=== PATIENT | male | born 1935 | race Two or more races ===

== ENCOUNTER 2018-08-29 10:53 | Inpatient (IN) | payer MEDICARE, OTHER ==
[~2018-08-29] VITALS: Ht 165.1 cm; Wt 64.4 kg
[2018-08-29 11:06] LABS: BASOPHILS % (AUTO) 0.4 % (0.0-2.0); EOSINOPHILS % (AUTO) 1.8 % (0.0-6.0); HEMATOCRIT 42 % (39-51); HEMOGLOBIN 14.8 g/dL (13.5-17.5); LYMPHOCYTES # (AUTO) 1.8 /CMM (0.8-4.8); LYMPHOCYTES % (AUTO) 26.2 % (20.0-44.0); MEAN CORPUSCULAR HGB CONC 35 g/dl (31.0-36.0); MEAN CORPUSCULAR VOLUME 88 fL (80-96); MONOCYTES # (AUTO) 0.5 /CMM (0.1-1.30); MONOCYTES % (AUTO) 7.6 % (2.0-12.0); NEUTROPHILS # (AUTO) 4.5 /CMM (1.8-8.9); PLATELET COUNT (AUTO) 198 /CMM (150-450)
--- NOTE | 2018-08-29 11:16 | NUR ---
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 On rrom air, breathing evenly and unlabored. Kept comfortable, will continue to monitor accordingly.
[2018-08-29 11:17] LABS: CALCIUM, SERUM 8.6 mg/dL (8.5-10.1); CARBON DIOXIDE 27 mmol/L (21-32); CHLORIDE 102 mmol/L (98-107); CREATININE 1.2 mg/dL (0.6-1.3); GLUCOSE 207 mg/dL (74-106); SODIUM SERUM 136 mmol/L (136-145); UREA NITROGEN, BLOOD 23 mg/dL (7-18)
[2018-08-29 11:23] LABS: ALANINE AMINOTRANSFERASE 20 U/L (12-78); ALBUMIN 2.7 g/dL (3.4-5.0); ALKALINE PHOSPHATASE 61 U/L (46-116); ASPARTATE AMINOTRANSFERASE 20 U/L (15-37); BILIRUBIN,DIRECT 0.1 mg/dL (0.0-0.2); BILIRUBIN,TOTAL 0.4 mg/dL (0.2-1.0); TOTAL PROTEIN, SERUM 6.7 g/dL (6.4-8.2)
--- NOTE | 2018-08-29 11:23 | NUR ---
XRAY AT BEDSIDE
--- NOTE | 2018-08-29 12:16 | NUR ---
LIBERTY ANDINO, MARY BETH HINSON FIELD ADMINISTRATIVE ASSISTANT DIET THERAPIST
[2018-08-29] MEDS ORDERED: ASPIRIN 325 MG TABLET PO ONE (12:30)
[2018-08-29] MEDS ORDERED: ASPI-605 PO (12:33)
[2018-08-29] MEDS ORDERED: METF-440 PO (12:33)
[2018-08-29] MEDS ORDERED: ROSU20TA2 PO (12:33)
[2018-08-29] MEDS ORDERED: SITA100T PO (12:33)
[2018-08-29] MEDS ORDERED: BENA40TA8 PO (12:33)
[2018-08-29] MEDS ORDERED: ISOS60TA4 PO (12:33)
[2018-08-29] MEDS ORDERED: ASPIRIN 325 MG TABLET ONE (12:37)
--- NOTE | 2018-08-29 12:50 | NUR ---
TELE 111-2
[2018-08-29 13:10] LABS: APPEARANCE,URINE Clear (CLEAR); BILIRUBIN,URINE Negative (NEGATIVE); BLOOD, URINE Small Ery/uL (NEGATIVE); KETONES,URINE Negative (NEGATIVE); LEUKOCYTE ESTERASE ,URINE Negative (NEGATIVE); NITRITE, URINE Negative (NEGATIVE); PROTEIN,URINE >=300 mg/dl (NEGATIVE); UGLUCOSE 250 MG/DL mg/dL (NEGATIVE)
[2018-08-29 13:12] LABS: COLOR,URINE Dark Yellow (YELLOW)
[2018-08-29 13:18] LABS: BACTERIA,URINE Few /HPF (None Seen); MUCUS,URINE Rare /LPF (None Seen); SQUAMOUS EPITHELIAL CELL,UR Moderate /HPF (None Seen)
--- NOTE | 2018-08-29 13:34 | NUR ---
TELE1/RN REPORT FROM ER REPORT GIVEN BY ER NURSE OSITO FOR PT TO BE ADMITTED TO [facility]LE [facility] UNDER THE CARE OF CESAR HINSON. AWAITING FOR PT'S ARRIVAL.
--- NOTE | 2018-08-29 13:43 | NUR ---
TELE1/BLUNGER TO TELE1 - ROOM 101 PT ARRIVED VIA [facility] ACCOMPANIED BY ER NURSE OSITO. PT AMBULATED TO [facility] TO HOSPITAL WITH A STEADY GAIT WITH MINIMUM ASSISTANCE. PT A/O X 3 SWAZI SPEAKING, DENIES ANY SYMPTOMS, OBVIOUS SIGNS OF STROKE, FACIAL FEATURES SYMMETRICAL, NO DRIFTING IN ARMS AND LEGS. ON TELE MONITORING SINUS RHYTHM WITH A FIRST DEGREE AV BLOCK, HR 65. IV SITE FLUSHED, PATENT WITH NO S/S OF INFECTION. PT AND FAMILY MEMBERS ORIENTED TO THEIR SURROUNDINGS. PT IS COMFORTABLE, AWAITING FOR ADMITTING ORDERS. ADMITTING PROTOCOLS TO BE RENDERED. CL WITHIN REACHED AND SAFETY MAINTAINED. ON GOING MONITORING.
--- NOTE | 2018-08-29 13:59 | NUR ---
wheeled patient via gurney accompanied by EMT and rn in no apparent distress noted. Pilar RN at bedside and assume care.
[2018-08-29 14:00] VITALS: BP 170/79
[2018-08-29] MEDS ORDERED: ACETAMINOPHEN 325 MG TABLET PO PRN (14:00)
[2018-08-29] MEDS ORDERED: DEXTROSE 50%-WATER 50 ML DISP.SYRIN IV PRN (14:00)
[2018-08-29] MEDS ORDERED: MAG HYDROX/AL HYDROX/SIMETH 30 ML UDC PO PRN (14:00)
[2018-08-29] MEDS ORDERED: hydrALAZINE HCL IV 20 MG VIAL IV PRN (14:00)
[2018-08-29 16:00] VITALS: BP 155/72
[2018-08-29] MEDS: ENOXAPARIN SODIUM 40 MG/0.4 ML DISP.SYRIN SQ SCH (16:14)
[2018-08-29] MEDS: IV NS 0.9% 1,000 ML IV PRN (16:19)
[2018-08-29] MEDS ORDERED: BLOOD SUGAR DIAGNOSTIC 1 EACH STRIP IN SCH ×2 (17:30)
--- NOTE | 2018-08-29 17:30 | NUR ---
TELE1/RN FOUND ON FLOOR PT FOUND ON FLOOR WITH IV SITE PULLED OUT. PER PT HIS NOT HURT, ACUTE SYMPTOMS IF INJURY NOTED. PRIMARY MD NOTIFIED, NO NEW ORDERS RECEIVED. Addendum: 08/29/18 at 2054 by BEAR BRANDT RN ADDENDUM: PT'S DAUGHTER WAS NOTIFIED OF THE EVENT VIA PHONE CALL.
[2018-08-29] MEDS: BLOOD SUGAR DIAGNOSTIC 1 EACH STRIP IN SCH (18:07)
[2018-08-29 19:29] LABS: THYROID STIMULATING HORMONE 1.747 uIU/mL (0.358-3.74)
--- NOTE | 2018-08-29 19:30 | NUR ---
TELE1/RN AM SHIFT END NOTES NO ACUTE CHANGE OF CONDITION NOTED SINCE PT WAS ADMITTED LATE THIS AFTERNOON, NO NOTICEABLE INJURY SEEN OR FELT PER PT WHEN PT FOUND ON THE FLOOR. PT ENDORSED TO PM NURSE TO CONTINUE CARE. CL WITHIN REACHED AND SAFETY MAINTAINED.
[2018-08-29 20:00] VITALS: BP 151/73
--- NOTE | 2018-08-29 20:00 | NUR ---
RN NOTES PM SHIFT PATIENT IS ALERT AND ORIENTED X3, FORGETFUL, STABLE ON ROOM AIR, NO COMPLAIN OF PAIN, S/P FALL TODAY, FOUND ON THE FLOOR IN ROOM 101. RE INSERTED IV LINE TO LEFT AC, ON NS AT 75 CC/HR, GENERALIZED WEAKNESS, NO SWALLOWING DIFFICULTY, FAMILY AT THE BEDSIDE, WILL CONTINUE TO MONITOR
[2018-08-30] VITALS: BP 147/63
[2018-08-30] MEDS: BLOOD SUGAR DIAGNOSTIC 1 EACH STRIP IN SCH ×4 (00:04→17:41)
[2018-08-30] MEDS: INSULIN REGULAR, HUMAN 100 UNIT/ML 3 ML VIAL SQ PRN ×4 (00:06→17:42)
[2018-08-30 04:09] VITALS: BP 157/75
--- NOTE | 2018-08-30 06:37 | NUR ---
RN NOTES PM SHIFT PATIENT IS ALERT AND ORIENTED X3, NO SOB, NO COMPLAIN OF PAIN, BG AT 0600 71 MG/DL, GIVEN ORANGE JUICE 8OZ, AFTER MINUTES RECHECK BG TO 105, NO S/S OF HYPOGLYCEMIA. NO ADVERSE CHANGE OF CONDITION DURING SHIFT.
[2018-08-30 06:43] LABS: BASOPHILS % (AUTO) 0.5 % (0.0-2.0); EOSINOPHILS % (AUTO) 2.9 % (0.0-6.0); HEMATOCRIT 35 % (39-51); HEMOGLOBIN 12.2 g/dL (13.5-17.5); LYMPHOCYTES # (AUTO) 1.7 /CMM (0.8-4.8); LYMPHOCYTES % (AUTO) 29.9 % (20.0-44.0); MEAN CORPUSCULAR HGB CONC 35 g/dl (31.0-36.0); MEAN CORPUSCULAR VOLUME 88 fL (80-96); MONOCYTES # (AUTO) 0.5 /CMM (0.1-1.30); MONOCYTES % (AUTO) 8.9 % (2.0-12.0); NEUTROPHILS # (AUTO) 3.4 /CMM (1.8-8.9); NEUTROPHILS % (AUTO) 57.8 % (43.0-81.0); PLATELET COUNT (AUTO) 171 /CMM (150-450); RED BLOOD CELL COUNT(AUTO) 4.01 MIL/uL (4.5-6.0); WHITE BLOOD COUNT (AUTO) 5.8 K/uL (4.3-11.0)
[2018-08-30 06:58] LABS: CARBON DIOXIDE 26 mmol/L (21-32); CHLORIDE 104 mmol/L (98-107); CREATININE 1.2 mg/dL (0.6-1.3); GLUCOSE 67 mg/dL (74-106); POTASSIUM 3.5 mmol/L (3.5-5.1); SODIUM SERUM 138 mmol/L (136-145); UREA NITROGEN, BLOOD 23 mg/dL (7-18)
--- NOTE | 2018-08-30 07:30 | NUR ---
RN NOTES RECEIVED PATIENT IN BED, A/A/O X 2-3, ABLE TO MAKE NEEDS KNOWN BUT EXPRESSES SELF MORE IN LITHUANIAN, NO COMPLAINTS OF PAIN. NO OBVIOUS SIGNS OF STROKE NOTED AT THIS TIME. FACIAL FEATURES SYMMETRICA: ABLE TO RAISE BROWS EVENLY, WITH EVEN SMILE, WITH EQUAL MUSCLE STRENGTH ON ALL EXTREMITIES. NO DRIFTING IN ARMS AND LEGS. ON TELE MONITORING: SINUS RHYTHM WITH A FIRST DEGREE AV BLOCK, HR ON THE 60'S. IV ACCESS SITE ON THE LAC G 22, IN PLACE AND INTACT, PATENT UPON FLUSHING WITH NO S/S OF INFILTRATION OR INFECTION. WITH ONGOING IVF OF NS AT 75CC/HR. AT BEDSIDE, ENCOURAGE THEM TO CALL FOR HELP AND ASSISTANCE. SAFETY MEASURES OBSERVED AND MAINTAINED IN PLACE. BED LOW AND LOCKED POSITIONED. SRX2 RAISED. CALL LIGHT PLACED WITHIN REACHED AND SAFETY MAINTAINED. WILL CONTINUE TO MONITOR AND ANTICIPATE NEEDS
[2018-08-30 08:00] VITALS: BP_SYST 151; BP_SYST 172; BP_DIAS 80; BP_DIAS 85
[2018-08-30] MEDS: ISOSORBIDE MONONITRATE (30MG) 30 MG TAB.SR.24H PO SCH (09:03)
[2018-08-30] MEDS: ATORVASTATIN 40 MG TABLET PO SCH (09:03)
[2018-08-30] MEDS: BENAZEPRIL HCL 20 MG TABLET PO SCH (09:03)
[2018-08-30] MEDS: PANTOPRAZOLE 40 MG TABLET.DR PO SCH (09:03)
[2018-08-30] MEDS: ASPIRIN EC 81 MG TABLET.DR PO SCH (09:03)
[2018-08-30 12:00] VITALS: BP_SYST 163; BP_SYST 175; BP_DIAS 78; BP_DIAS 85
[2018-08-30] MEDS: IV NS 0.9% 1,000 ML IV PRN (12:35)
[2018-08-30 16:00] VITALS: BP 106/75
--- NOTE | 2018-08-30 19:49 | NUR ---
RN NOTES ENDORSED PATIENT FOR CONTINUITY CARE. NOT ON ANY FORM OF DISTRESS. NO ACUTE CHANGES WITHIN THE SHIFT. ALL NURSING NEEDS ATTENDED AND MET. SAFETY MEASURES IN PLACE AT ALL TIME. CALL LIGHT PLACED WITHIN REACH
[2018-08-30 20:00] VITALS: BP_SYST 165; BP_DIAS 75; BP_DIAS 76
--- NOTE | 2018-08-30 20:00 | NUR ---
CLAUDY RN NOTES RECEIVED PATIENT IN BED, A/A/O X 2-3, ABLE TO MAKE NEEDS KNOWN IN DANISH, NO COMPLAINTS OF PAIN. NO OBVIOUS SIGNS OF STROKE NOTED AT THIS TIME. FACIAL FEATURES SYMMETRICA: ABLE TO RAISE EYE BROWS EVENLY, WITH EVEN SMILE, WITH EQUAL MUSCLE STRENGTH ON ALL EXTREMITIES. NO DRIFTING IN ARMS AND LEGS. IV ACCESS SITE ON THE LAC G 22 AND RIGHT HAND 22G ARE IN PLACE AND INTACT, PATENT UPON FLUSHING WITH NO S/S OF INFILTRATION OR INFECTION. WITH ONGOING IVF OF NS AT 75CC/HR. AT BEDSIDE, ENCOURAGE THEM TO CALL FOR HELP FOR ASSISTANCE. SAFETY MEASURES OBSERVED AND MAINTAINED IN PLACE. BED LOW AND LOCKED POSITIONED. SRX2 RAISED. CALL LIGHT PLACED WITHIN REACHED AND SAFETY MAINTAINED. WILL CONTINUE TO MONITOR AND ANTICIPATE NEEDS ACCORDINGLY.
--- NOTE | 2018-08-30 21:35 | NUR ---
RN NOTES PATIENT'S B/P 180/86 HR 65 . CALLED MD THIBODEAUX PER MD ORDER PATIENT'S STATUS FROM MS HAS BEEN CHANGED TO CLAUDY AND APRESOLINE IV 20MG WILL BE ADMINISTERED. WILL CONTINUE TO MONITOR PATIENT CLOSELY.
[2018-08-30] MEDS: ENOXAPARIN SODIUM 40 MG/0.4 ML DISP.SYRIN SQ SCH (21:40)
[2018-08-30] MEDS ORDERED: DONEPEZIL 5 MG TABLET PO SCH (22:00)
--- NOTE | 2018-08-30 22:00 | NUR ---
RN NOTES PATIENT B/P HAS BEEN RECHECKED AND B/P IS 137/73 HR 80. WILL CONTINUE TO MONITOR PATIENT.
[2018-08-31] VITALS: BP 144/74
[2018-08-31] MEDS: BLOOD SUGAR DIAGNOSTIC 1 EACH STRIP IN SCH ×3 (00:23→11:59)
[2018-08-31 04:00] VITALS: BP 141/79
[2018-08-31] MEDS: INSULIN REGULAR, HUMAN 100 UNIT/ML 3 ML VIAL SQ PRN ×2 (06:15→12:04)
[2018-08-31 06:50] LABS: BASOPHILS % (AUTO) 0.5 % (0.0-2.0); EOSINOPHILS % (AUTO) 2.4 % (0.0-6.0); HEMATOCRIT 40 % (39-51); LYMPHOCYTES # (AUTO) 1.5 /CMM (0.8-4.8); LYMPHOCYTES % (AUTO) 22.6 % (20.0-44.0); MEAN CORPUSCULAR HGB CONC 35 g/dl (31.0-36.0); MEAN CORPUSCULAR VOLUME 88 fL (80-96); MONOCYTES # (AUTO) 0.5 /CMM (0.1-1.30); NEUTROPHILS # (AUTO) 4.3 /CMM (1.8-8.9); NEUTROPHILS % (AUTO) 66.5 % (43.0-81.0); PLATELET COUNT (AUTO) 176 /CMM (150-450); RED BLOOD CELL COUNT(AUTO) 4.57 MIL/uL (4.5-6.0); WHITE BLOOD COUNT (AUTO) 6.5 K/uL (4.3-11.0)
[2018-08-31 07:15] LABS: CALCIUM, SERUM 8.4 mg/dL (8.5-10.1); CARBON DIOXIDE 24 mmol/L (21-32); CHLORIDE 104 mmol/L (98-107); CREATININE 1.2 mg/dL (0.6-1.3); GLUCOSE 173 mg/dL (74-106); MAGNESIUM 1.9 mg/dL (1.8-2.4); PHOSPHORUS 3.1 mg/dL (2.5-4.9); POTASSIUM 3.7 mmol/L (3.5-5.1); SODIUM SERUM 137 mmol/L (136-145); UREA NITROGEN, BLOOD 17 mg/dL (7-18)
--- NOTE | 2018-08-31 07:32 | NUR ---
PROCESS AREA SUPERVISOR/CLAUDY OPENING NOTES RECEIVED PATIENT AWAKE SITTING AT SIDE OF BED. HUNGARIAN SPEAKING A/O 2-3. SINUS ON MONITOR IN THE LOW 80'S. SKIN INTACT AMBULATORY IN ROOM .IV TO RIGHT HAND #22 GAUGE LAC #22 GAUGE.NO SIGNS OR SYMPTOMS OF RESPIRATORY DISTRESS OR ACUTE PAIN NOTED. WILL MONITOR LABS AND TESTS ACCORDINGLY. SAFETY PRECAUTIONS IN PLACE BED ALARM AND IN LOW POSITION. CALL LIGHT WITHIN REACH WILL CONT TO MONITOR APPROPRIATELY
--- NOTE | 2018-08-31 07:33 | NUR ---
RN NOTES ENDORSED PATIENT CARE REPORT TO AM SHIFT RN FOR CONTINUITY OF CARE. PATIENT IS NOT IN ANY DISTRESS. ALL PATIENT NEEDS ARE ATTENDED AND MET. SAFETY MEASURES IN PLACE AT ALL TIME. CALL LIGHT PLACED WITHIN REACH.
[2018-08-31 08:00] VITALS: BP 150/82
[2018-08-31] MEDS: ASPIRIN EC 81 MG TABLET.DR PO SCH (08:28)
[2018-08-31] MEDS: ATORVASTATIN 40 MG TABLET PO SCH (08:28)
[2018-08-31] MEDS: PANTOPRAZOLE 40 MG TABLET.DR PO SCH (08:28)
[2018-08-31] MEDS: ISOSORBIDE MONONITRATE (30MG) 30 MG TAB.SR.24H PO SCH (08:29)
[2018-08-31] MEDS: BENAZEPRIL HCL 20 MG TABLET PO SCH (08:29)
--- NOTE | 2018-08-31 11:30 | NUR ---
RN CLAUDY/TELE NOTES MONITORING B/P LAST READING 169/42 PATIENT HAS TREMORS TO BOTH ARMS READING MAY REFLECT.
[2018-08-31 12:00] VITALS: BP 168/80
[2018-08-31] MEDS ORDERED: DONE5TAB7 PO (12:35)
--- NOTE | 2018-08-31 12:51 | NUR ---
ORDERS FOR DISCHARGE SPOKE WITH DAUGHTER WILL P/U AT 1400
--- NOTE | 2018-08-31 14:09 | NUR ---
SENIOR DATA ANALYST NOTES PATIENT FAMILY TO P/U PATIENT. APTIENT STABLE NO SIGNS OR SYMPTOMS OF RESPIRATORY DISTRESS OR ACUTE PAIN VS T 97.7 HR 65 RR 18 O2 100% ON ROM AIR BP 164/75. SKIN INTACT NO PHOTOS TAKEN .IV REMOVED FROM R HAND # 22 GAUGE AND LAC #22 GAUGE REMOVED CATH INTACT MINIMAL BLEEDING NOTED. ALL EXIT CARE GIVEN TO DAUGHTER WELL MD ORDERS TO F/U WITH NEUROLOGIST. ESCORTED OF UNIT VIA WHEELCHAIR WITH FAMILY AND CORSETS SALESPERSON.
== END 2018-08-31 14:11 | disposition home or self-care (01) | DRG 640 ==
LOC: ER 10:57 → TELE1 13:05 → MEDSG1 08-30 13:01 → TELE-TD 08-31 00:52
PROVIDERS: ADMIT Nurse Practitioner Acute Care; ATTEND Nurse Practitioner Acute Care
DX: E86.0 Dehydration (principal); G93.41 Metabolic encephalopathy; E44.1 Mild protein-calorie malnutrition; N39.0 Urinary tract infection, site not specified; F03.90 Unspecified dementia, unspecified severity, without behavioral disturbance, psychotic disturbance, mood disturbance, and anxiety; I10 Essential (primary) hypertension; E11.9 Type 2 diabetes mellitus without complications; E78.5 Hyperlipidemia, unspecified; K21.9 Gastro-esophageal reflux disease without esophagitis; M19.90 Unspecified osteoarthritis, unspecified site; Z79.84 Long term (current) use of oral hypoglycemic drugs; E88.09 Other disorders of plasma-protein metabolism, not elsewhere classified; N40.0 Benign prostatic hyperplasia without lower urinary tract symptoms; Z68.23 Body mass index [BMI] 23.0-23.9, adult
CPT/HCPCS: 36415; 70450-TC; 71045-TC; 80048-TC; 80061-TC; 80076-TC; 80305; 81000-TC; 82962-TC; 83735-TC; 83880; 84100-TC; 84443-TC; 84484-TC; 85025-TC; 85652-TC; 85730-TC; 87081-TC; 87086-TC; 92526; 92611-TC; 97116-TC; 97530-TC; 97535-TC; G0378; J0360; J1650; J1815; J3490; J7030; J7070

== ENCOUNTER 2019-03-23 15:17 | Inpatient (IN) | payer MEDICARE, OTHER ==
[~2019-03-23] VITALS: Ht 157.5 cm; Wt 54.4 kg
[~2019-03-23 15:17] MED LIST: ASPI-605 PO; BENA40TA8 PO; DONE5TAB7 PO; ISOS60TA4 PO; METF-440 PO; ROSU20TA2 PO; SITA100T PO
--- NOTE | 2019-03-23 15:54 | NUR ---
BIBPA FOR LOW BP 88/64 PER EMS,F[place]ON AXOX2.NO SOB NO DISTRESS NOTED.WILL CONTINUE TO MONITOR.
--- NOTE | 2019-03-23 16:16 | NUR ---
called rn sup for tele bed
[2019-03-23 16:30] LABS: BASOPHILS % (AUTO) 0.3 % (0.0-2.0); EOSINOPHILS % (AUTO) 0.3 % (0.0-6.0); HEMATOCRIT 43 % (39-51); LYMPHOCYTES # (AUTO) 1.5 /CMM (0.8-4.8); LYMPHOCYTES % (AUTO) 13.1 % (20.0-44.0); MEAN CORPUSCULAR HGB CONC 33 g/dl (31.0-36.0); MEAN CORPUSCULAR VOLUME 89 fL (80-96); MONOCYTES # (AUTO) 0.8 /CMM (0.1-1.30); MONOCYTES % (AUTO) 7.1 % (2.0-12.0); NEUTROPHILS # (AUTO) 9.3 /CMM (1.8-8.9); NEUTROPHILS % (AUTO) 79.2 % (43.0-81.0); PLATELET COUNT (AUTO) 219 /CMM (150-450); WHITE BLOOD COUNT (AUTO) 11.8 K/uL (4.3-11.0)
[2019-03-23] MEDS ORDERED: IV NS 0.9% 500 ML BAG IV ONE (16:30)
[2019-03-23 16:49] LABS: ALANINE AMINOTRANSFERASE 191 U/L (12-78); ALBUMIN 1.9 g/dL (3.4-5.0); ALKALINE PHOSPHATASE 117 U/L (46-116); ASPARTATE AMINOTRANSFERASE 98 U/L (15-37); BILIRUBIN,DIRECT 0.1 mg/dL (0.0-0.2); BILIRUBIN,TOTAL 0.4 mg/dL (0.2-1.0); CALCIUM, SERUM 9.1 mg/dL (8.5-10.1); CARBON DIOXIDE 22 mmol/L (21-32); CHLORIDE 96 mmol/L (98-107); CREATININE 2.4 mg/dL (0.6-1.3); GLUCOSE 251 mg/dL (74-106); POTASSIUM 5.2 mmol/L (3.5-5.1); SODIUM SERUM 127 mmol/L (136-145); TOTAL PROTEIN, SERUM 7.3 g/dL (6.4-8.2)
[2019-03-23] MEDS ORDERED: AMLO10TA4 PO (16:49)
[2019-03-23] MEDS ORDERED: TAMS-12 PO (16:49)
[2019-03-23] MEDS ORDERED: LANS30CA56 PO (16:49)
[2019-03-23] MEDS ORDERED: ROSU40TA PO (16:49)
[2019-03-23] MEDS ORDERED: CLONIDINE PATCH (16:49)
[2019-03-23] MEDS ORDERED: SOTA80TA PO (16:49)
[2019-03-23] MEDS ORDERED: INSU100V7 SQ (16:49)
[2019-03-23] MEDS ORDERED: CLOP75TA15 PO (16:49)
[2019-03-23] MEDS ORDERED: LOSA50TA3 PO (16:49)
[2019-03-23] MEDS ORDERED: ENOX40DI SQ (16:49)
[2019-03-23] MEDS ORDERED: FURO-144 PO (16:49)
[2019-03-23] MEDS ORDERED: INSU100I4 SQ (16:49)
[2019-03-23] MEDS ORDERED: DOCU-141 PO (16:49)
[2019-03-23] MEDS ORDERED: SPIR50TA5 PO (16:49)
[2019-03-23] MEDS ORDERED: HYDR-4076 PO (16:49)
[2019-03-23] MEDS ORDERED: LINA72CA PO (16:49)
[2019-03-23] MEDS ORDERED: ACET-868 PO (16:49)
[2019-03-23 16:54] LABS: UREA NITROGEN, BLOOD 86 mg/dL (7-18)
--- NOTE | 2019-03-23 16:54 | NUR ---
BUN=86
--- NOTE | 2019-03-23 17:12 | NUR ---
epic was paged
[2019-03-23 17:16] LABS: APPEARANCE,URINE Cloudy (CLEAR); BILIRUBIN,URINE Negative (NEGATIVE); BLOOD, URINE Large Ery/uL (NEGATIVE); COLOR,URINE Yellow (YELLOW); KETONES,URINE Negative (NEGATIVE); LEUKOCYTE ESTERASE ,URINE Large (NEGATIVE); NITRITE, URINE Negative (NEGATIVE); PROTEIN,URINE 100 mg/dl (NEGATIVE); UGLUCOSE Negative (NEGATIVE); UROBILINOGEN,URINE 0.2 EU/dL (0.2)
--- NOTE | 2019-03-23 17:18 | NUR ---
BIBPA FOR LOW BP 88/64 PER EMS,F[place]ON AXOX2.NO SOB NO DISTRESS NOTED.WILL CONTINUE TO MONITOR.
--- NOTE | 2019-03-23 17:18 | NUR ---
still waiting for bed assignment
[2019-03-23 17:28] LABS: BACTERIA,URINE Many /HPF (None Seen); SQUAMOUS EPITHELIAL CELL,UR Few /HPF (None Seen)
[2019-03-23] MEDS ORDERED: PIPERACILLIN /TAZOBACTAM 3.375 G in IV D5W 50 ML IV ONE (17:30)
[2019-03-23] MEDS ORDERED: VANCOMYCIN HCL 1 GM in IV D5W 260 ML IV ONE (17:30)
--- NOTE | 2019-03-23 17:37 | NUR ---
paged viky again
--- NOTE | 2019-03-23 18:17 | NUR ---
REPORTGIVEN TO ANTONIO MONTEMAYOR
[2019-03-23] MEDS ORDERED: Z GUARD REMEDY 2 OZ OINT TP PRN (19:00)
[2019-03-23] MEDS ORDERED: ACETAMINOPHEN 325 MG TABLET PO PRN (19:00)
[2019-03-23] MEDS ORDERED: ENOXAPARIN SODIUM 30 MG/0.3 ML DISP.SYRIN SQ SCH (19:00)
[2019-03-23] MEDS ORDERED: ONDANSETRON HCL/PF 4 MG/2 ML VIAL IVP PRN (19:00)
--- NOTE | 2019-03-23 19:00 | NUR ---
traveling storekeepersewer digger notes Received Pt from ER nurse. Pt arrived at the unit with a gurtrino and ACLS protocol. Pt is 83 M YO with a diagnose of sepsis with UTI. Pt is alert and orientedX1. Pt speaks Nepali and able to make needs known. Respiration is normal. No SOB. No nausea or vomiting. Pt denies any pain or discomfort at this time. Tele monitor showed sinus salty 57. IV sites at R hand# 20 is clean, intact, patent. Pt came with vanco abx still infusing from ER. Argyle Pt to the room and the use of call light. Admission orders is received. Skin is intact. Pt's belonging was checked by TRACEY Duong. Safety precautions is maintained. Bed at low position, brakes locked, side rails upX3 and call light is within reach. Will continue to monitor.
--- NOTE | 2019-03-23 19:05 | NUR ---
SCHOOL SOCIAL WORKER NOTES PATIENT RECEIVED AWAKE IN BED, NO RESPIRATORY DISTRESS, NO C/O PAIN AT THIS TIME. PATIENT'S NEEDS ATTENDED, BED ON LOWEST LOCKED POSITION, CALL LIGHT WITHIN REACH. ENDORSED TO ANTONIO LOBO FOR ADMISSION.
[2019-03-23 19:10] VITALS: BP 117/58
--- NOTE | 2019-03-23 19:10 | NUR ---
talk show host notes Echo at the bedside.
[2019-03-23] MEDS ORDERED: DEXTROSE 50%-WATER 50 ML DISP.SYRIN IV PRN (19:30)
[2019-03-23] MEDS: IV NS 0.9% 1,000 ML IV PRN (19:55)
[2019-03-23 20:00] VITALS: BP_SYST 117; BP_SYST 120; BP_DIAS 51; BP_DIAS 54
--- NOTE | 2019-03-23 20:00 | NUR ---
vending mechanic notes Contacted Dr. Lester regarding lovenox 30 mg that is scheduled at 1900 and 2100. MD ordered to give at 2100 not 1900. Called pharmacy and spoke with Judith regarding lovenox. Will continue to monitor.
[2019-03-23] MEDS ORDERED: FEE PK DOSING 1 MIN EA MC ONE (20:09)
[2019-03-23] MEDS: hydrALAZINE HCL 25 MG TABLET PO SCH (20:30)
[2019-03-23] MEDS: ENOXAPARIN SODIUM 30 MG/0.3 ML DISP.SYRIN SQ SCH (20:31)
[2019-03-23] MEDS: TAMSULOSIN 0.4 MG CAP.SR.24H PO SCH (21:07)
[2019-03-23] MEDS ORDERED: ATORVASTATIN 40 MG TABLET PO SCH (22:00)
[2019-03-23] MEDS: PIPERACILLIN /TAZOBACTAM 2.25 G in IV D5W 50 ML IV SCH (23:34)
[2019-03-23] MEDS: BLOOD SUGAR DIAGNOSTIC 1 EACH STRIP IN SCH (23:45)
[2019-03-23] MEDS: INSULIN REGULAR, HUMAN 100 UNIT/ML 3 ML VIAL SQ PRN (23:52)
[2019-03-24] VITALS: BP 104/48
--- NOTE | 2019-03-24 | NUR ---
soap chipper notes Pt's BP 104/48. HR 53. Tele monitor showed sinus salty at 53. IV fluid is infusing NS @ 75 ml/hr. Asymptomatic. No S/S of distress noted. Charge nurse is aware and informed. Will continue to monitor.
--- NOTE | 2019-03-24 03:00 | NUR ---
marketing communications assistant notes Called and spoke with Leighton can labeler about Pt's troponin that due midnight. Leighton stated Q 6hrs. Leighton will come and draw the blood.
--- NOTE | 2019-03-24 03:07 | NUR ---
silk brusher notes senior mechanical technician Leighton at the bedside.
[2019-03-24 03:18] LABS: BASOPHILS # (AUTO) 0.1 /CMM (0.0-0.2); BASOPHILS % (AUTO) 0.9 % (0.0-2.0); EOSINOPHILS % (AUTO) 0.7 % (0.0-6.0); HEMATOCRIT 39 % (39-51); HEMOGLOBIN 13.3 g/dL (13.5-17.5); LYMPHOCYTES # (AUTO) 1.2 /CMM (0.8-4.8); LYMPHOCYTES % (AUTO) 15.3 % (20.0-44.0); MEAN CORPUSCULAR HGB CONC 34 g/dl (31.0-36.0); MEAN CORPUSCULAR VOLUME 87 fL (80-96); MONOCYTES # (AUTO) 0.8 /CMM (0.1-1.30); MONOCYTES % (AUTO) 10.4 % (2.0-12.0); NEUTROPHILS # (AUTO) 5.9 /CMM (1.8-8.9); NEUTROPHILS % (AUTO) 72.7 % (43.0-81.0); PLATELET COUNT (AUTO) 221 /CMM (150-450); RED BLOOD CELL COUNT(AUTO) 4.49 MIL/uL (4.5-6.0); WHITE BLOOD COUNT (AUTO) 8.2 K/uL (4.3-11.0)
[2019-03-24 03:31] LABS: ALANINE AMINOTRANSFERASE 155 U/L (12-78); ALBUMIN 1.9 g/dL (3.4-5.0); ALKALINE PHOSPHATASE 103 U/L (46-116); ASPARTATE AMINOTRANSFERASE 89 U/L (15-37); BILIRUBIN,TOTAL 0.4 mg/dL (0.2-1.0); CALCIUM, SERUM 8.7 mg/dL (8.5-10.1); CARBON DIOXIDE 25 mmol/L (21-32); CHLORIDE 99 mmol/L (98-107); GLUCOSE 131 mg/dL (74-106); MAGNESIUM 2.4 mg/dL (1.8-2.4); PHOSPHORUS 4.4 mg/dL (2.5-4.9); POTASSIUM 4.2 mmol/L (3.5-5.1); SODIUM SERUM 132 mmol/L (136-145); TOTAL PROTEIN, SERUM 6.7 g/dL (6.4-8.2); UREA NITROGEN, BLOOD 80 mg/dL (7-18)
[2019-03-24 03:45] LABS: IRON, SERUM 53 ug/dl (50-175); TOTAL IRON BINDING CAPACITY 113 ug/dl (250-450)
[2019-03-24 03:55] LABS: CHOLESTEROL 82 mg/dL (<200); HDL CHOLESTEROL 30 mg/dL (40-60); LDL 40 mg/dL (0-99); THYROID STIMULATING HORMONE 0.838 uIU/mL (0.358-3.74); TRIGLYCERIDES 127 mg/dL (30-150)
[2019-03-24 04:00] VITALS: BP 101/52
[2019-03-24] MEDS: hydrALAZINE HCL 25 MG TABLET PO SCH ×3 (04:01→21:00)
[2019-03-24 04:40] VITALS: BP 101/52
[2019-03-24] MEDS: PIPERACILLIN /TAZOBACTAM 2.25 G in IV D5W 50 ML IV SCH ×4 (05:00→23:59)
[2019-03-24] MEDS: BLOOD SUGAR DIAGNOSTIC 1 EACH STRIP IN SCH ×3 (06:18→19:05)
[2019-03-24] MEDS: INSULIN REGULAR, HUMAN 100 UNIT/ML 3 ML VIAL SQ PRN ×2 (06:20→19:02)
--- NOTE | 2019-03-24 06:53 | NUR ---
tape edge machine operator closing notes Pt is resting in bed comfortably. Respiration is normal. No SOB. No S/S of distress noted. IV sites at R hand# 20 is clean, intact, patent and infusing well NS @ 75 ml/hr. VS is stable. Afebrile. Routine meds were given as ordered. Tele monitor showed sinus salty at 52. Kept Pt clean, dry, warm and comfortable. Skin care provided. Turned and repositioned Q 2 hr. Safety precautions is maintained. Bed at low position, brakes locked, side rails upX3 and call light is within reach. Will endorse to morning nurse to KITTY.
--- NOTE | 2019-03-24 07:00 | NUR ---
COMPUTER LAB ASSISTANT NOTES OPENING PATIENT IS A/O 1 PATIENT IS AMHARIC SPEAKING. PATIENT IS RESTING COMFORABLE IN BED. PATIENT IS AWAKE. PATIENT IS IN ROOM AIR SATURATING WELL. PATIENT SHOWS NO SIGNS OF SOB. NO PAIN. EVEN AND UNLABORED . PATIENT IS ON TELE MONITOR PATIENT IS IN SINUS BRIAN IN THE 50'S . PATIENT IS LUPPPER CONTRACTIONS. L LOWER SEVERE WEAKNESS. AND R UPPER AND LOWER WEAKNESS. PATIENT HAS R HAND 20# PATENT AND INTACT. WITH NS 75ML/ HOUR BED LOCKED AND LOWEST POSITION CALL LIGHT WITH IN REACH. ALL SAFETY MEASURE IMPLEMENTED PER HOSPITAL POLICY
[2019-03-24] MEDS: INSULIN ASPART/LISPRO 100 UNIT/ML CARTRIDGE SQ SCH ×3 (07:30→17:30)
[2019-03-24 08:00] VITALS: BP 120/70
--- NOTE | 2019-03-24 08:12 | NUR ---
LEAD PRINTER NOTES BS 90 PATIENT INSULIN HUMALOG HELD . PATIENT DID NOT EAT MUCH FOOD. PATIENT WAS STARTING TO POCKET FOOD. POCKETED FOOD TAKEN OUT. FOR ASPIRATION RISK
[2019-03-24] MEDS: LOSARTAN POTASSIUM 50 MG TABLET PO SCH ×2 (08:18→16:01)
[2019-03-24] MEDS: AMLODIPINE BESYLATE 10 MG TABLET PO SCH (08:18)
--- NOTE | 2019-03-24 08:18 | NUR ---
FILTER PULP WASHER NOTES MEDICATION HELD BP 106/57 HR 53 Addendum: 03/24/19 at 0827 by MICHAEL ALONSO RN FILTER PULP WASHER NOTES BP MEDICATIONS HELD . PATIENT BP 106/57 - HR 53
[2019-03-24] MEDS: ASPIRIN EC 81 MG TABLET.DR PO SCH (08:20)
[2019-03-24] MEDS: CLOPIDOGREL BISULFATE 75 MG TABLET PO SCH (08:20)
[2019-03-24] MEDS: SOTALOL HCL 80 MG TABLET PO SCH (08:24)
--- NOTE | 2019-03-24 11:21 | NUR ---
RN MS NOTES - BS BS -110 NO COVERAGE FOR INSULIN
[2019-03-24 16:00] VITALS: BP 127/54
--- NOTE | 2019-03-24 16:02 | NUR ---
RN MS PATIENT BP 127/57 HOLD BP HR 53 MEDICATION
[2019-03-24] MEDS: VANCOMYCIN 0.75 GM in IV D5W 250 ML IV SCH (17:53)
--- NOTE | 2019-03-24 19:10 | NUR ---
MS RN NOTES RECEIVED PT IN BED AWAKE WITH FAMILY AT BEDSIDE. PT A/O X 1 UPPER SORBIAN SPEAKING. RESPIRATIONS EVEN AND UNLABORED WITH NO S/S OF ACUTE DISTRESS OR SOB NOTED. NO COMPLAINTS OF PAIN AT THIS TIME. PT WITH RHAND #20G PATENT AND INTACT INFUSING NS @75CC/HR. BED IN LOWEST LOCKED POSITION WITH SIDE RAILS UP X2. CALL LIGHT WITHIN REACH. WILL CONTINUE TO MONITOR.
--- NOTE | 2019-03-24 19:19 | NUR ---
RN MS NOTES PATIENT A/O X 1 . PATIENT IS ICELANDIC SPEAKING . PATIENT HAS FAMILY AT BEDSIDE. PATIENT IS IN ROOM AIR AND SATURATING WELL . PATIENT SHOWS NO SIGNS OF SOB, EVEN AND UNLABORED BREATHING . NO SIGNS OF ACUTE DISTRESS NO PAIN .ALL NEEDS MET . BED LOCKED AND LOWEST POSITION CALL LIGHT WITH IN REACH. ALL SAFETY MEASURE IMPLEMENTED PER HOSPITAL POLICY
[2019-03-24 20:00] VITALS: BP 144/68
[2019-03-24] MEDS: TAMSULOSIN 0.4 MG CAP.SR.24H PO SCH (21:47)
[2019-03-24] MEDS: ENOXAPARIN SODIUM 30 MG/0.3 ML DISP.SYRIN SQ SCH (21:51)
[2019-03-25] MEDS: BLOOD SUGAR DIAGNOSTIC 1 EACH STRIP IN SCH ×4 (00:37→18:09)
[2019-03-25] MEDS: IV D5/ 0.9% NACL 1,000 ML IV PRN ×2 (01:06→18:16)
[2019-03-25] MEDS: hydrALAZINE HCL 25 MG TABLET PO SCH ×3 (04:47→21:48)
[2019-03-25] MEDS: PIPERACILLIN /TAZOBACTAM 2.25 G in IV D5W 50 ML IV SCH (05:53)
--- NOTE | 2019-03-25 06:50 | NUR ---
MS RN NOTES PT IN BED ASLEEP BUT EASILY AWOKEN VERBALLY OR BY TOUCH. PT A/O X 1 TRISTANIAN SPEAKING. RESPIRATIONS EVEN AND UNLABORED WITH NO S/S OF ACUTE DISTRESS OR SOB NOTED THROUGHOUT SHIFT. NO COMPLAINTS OF PAIN AT THIS TIME. PT WITH RHAND #20G PATENT AND INTACT INFUSING D5NS @75CC/HR. BED IN LOWEST LOCKED POSITION WITH SIDE RAILS UP X2. CALL LIGHT WITHIN REACH. WILL ENDORSE TO ONCOMING NURSE FOR KITTY.
[2019-03-25 07:18] LABS: BASOPHILS % (AUTO) 0.3 % (0.0-2.0); CREATINE KINASE, TOTAL 1066 U/L (39-308); EOSINOPHILS % (AUTO) 0.9 % (0.0-6.0); HEMATOCRIT 41 % (39-51); HEMOGLOBIN 13.8 g/dL (13.5-17.5); LYMPHOCYTES # (AUTO) 1.3 /CMM (0.8-4.8); LYMPHOCYTES % (AUTO) 20.1 % (20.0-44.0); MEAN CORPUSCULAR HGB CONC 34 g/dl (31.0-36.0); MEAN CORPUSCULAR VOLUME 88 fL (80-96); MONOCYTES # (AUTO) 0.8 /CMM (0.1-1.30); MONOCYTES % (AUTO) 12.5 % (2.0-12.0); NEUTROPHILS # (AUTO) 4.4 /CMM (1.8-8.9); NEUTROPHILS % (AUTO) 66.2 % (43.0-81.0); PLATELET COUNT (AUTO) 201 /CMM (150-450); RED BLOOD CELL COUNT(AUTO) 4.63 MIL/uL (4.5-6.0); WHITE BLOOD COUNT (AUTO) 6.6 K/uL (4.3-11.0)
[2019-03-25 07:23] LABS: ALANINE AMINOTRANSFERASE 151 U/L (12-78); ALBUMIN 1.7 g/dL (3.4-5.0); ALKALINE PHOSPHATASE 97 U/L (46-116); ASPARTATE AMINOTRANSFERASE 91 U/L (15-37); BILIRUBIN,TOTAL 0.4 mg/dL (0.2-1.0); CALCIUM, SERUM 8.6 mg/dL (8.5-10.1); CARBON DIOXIDE 23 mmol/L (21-32); CHLORIDE 105 mmol/L (98-107); CREATININE 1.4 mg/dL (0.6-1.3); GLUCOSE 93 mg/dL (74-106); MAGNESIUM 2.2 mg/dL (1.8-2.4); PHOSPHORUS 3.3 mg/dL (2.5-4.9); SODIUM SERUM 137 mmol/L (136-145); TOTAL PROTEIN, SERUM 6.5 g/dL (6.4-8.2); UREA NITROGEN, BLOOD 51 mg/dL (7-18)
[2019-03-25] MEDS: INSULIN ASPART/LISPRO 100 UNIT/ML CARTRIDGE SQ SCH ×3 (07:30→17:30)
--- NOTE | 2019-03-25 07:30 | NUR ---
npo in am,awaiting arrival of epic .
[2019-03-25 08:00] VITALS: BP 133/64
[2019-03-25] MEDS: CLOPIDOGREL BISULFATE 75 MG TABLET PO SCH (09:56)
[2019-03-25] MEDS: ASPIRIN EC 81 MG TABLET.DR PO SCH (09:56)
[2019-03-25] MEDS: SOTALOL HCL 80 MG TABLET PO SCH (10:50)
--- NOTE | 2019-03-25 10:52 | NUR ---
INDERJIT LU OK'D TO GIVE PT. BETAPACE MED.HEART RATE 55-56.
[2019-03-25] MEDS: AMLODIPINE BESYLATE 10 MG TABLET PO SCH (10:54)
[2019-03-25] MEDS: LOSARTAN POTASSIUM 50 MG TABLET PO SCH ×2 (10:54→18:31)
--- NOTE | 2019-03-25 11:30 | NUR ---
dr. [email or web address].[email or web address] choral director in orders given.pt non-croatian speaking.
[2019-03-25] MEDS: CEFTRIAXONE 1 G in IV D5W 50 ML IV SCH (13:16)
[2019-03-25 16:00] VITALS: BP 150/71
--- NOTE | 2019-03-25 16:05 | NUR ---
NM: HIDA SCAN WAS COMPLETED. TECH;RB
[2019-03-25] MEDS: VANCOMYCIN 0.75 GM in IV D5W 250 ML IV SCH (18:23)
--- NOTE | 2019-03-25 18:50 | NUR ---
had hida scan,ate very little dinner of soft diet.family at bedside.
--- NOTE | 2019-03-25 19:31 | NUR ---
MS RN RECEIVE PT IN BED FAMILY AT BEDSIDE A/O X 1 STABLE AND NOT IN DISTRESS, SAFETY MEASURES IN PLACE. WILL CONTINUE TO MONITOR.
[2019-03-25 20:00] VITALS: BP 143/65
[2019-03-25] MEDS: TAMSULOSIN 0.4 MG CAP.SR.24H PO SCH (21:48)
[2019-03-25] MEDS: ENOXAPARIN SODIUM 30 MG/0.3 ML DISP.SYRIN SQ SCH (21:49)
[2019-03-26] MEDS: BLOOD SUGAR DIAGNOSTIC 1 EACH STRIP IN SCH ×4 (00:01→17:52)
[2019-03-26] MEDS: INSULIN REGULAR, HUMAN 100 UNIT/ML 3 ML VIAL SQ PRN ×2 (00:02→06:01)
[2019-03-26] MEDS: hydrALAZINE HCL 25 MG TABLET PO SCH ×3 (05:14→20:43)
--- NOTE | 2019-03-26 06:15 | NUR ---
MS RN ASLEEP AND EASILY AWAKEN. NOT IN DISTRESS,. NO SIGNIFICANT CHANGES, NO SOB, AM CARE RENDERED, NEEDS ATTENDED AND ANTICIPATED. KEPT CLEAN, DRY AND COMFORTABLE AT ALL TIMES. GOOD SKIN CARE PROVIDED. REPOSITION EVERY [address] ME[address] PL[address]. WILL ENDORSE NEXT SHIFT POC.
[2019-03-26 07:27] LABS: CALCIUM, SERUM 8.4 mg/dL (8.5-10.1); CARBON DIOXIDE 23 mmol/L (21-32); CHLORIDE 109 mmol/L (98-107); CREATININE 1.1 mg/dL (0.6-1.3); GLUCOSE 85 mg/dL (74-106); POTASSIUM 3.7 mmol/L (3.5-5.1); SODIUM SERUM 140 mmol/L (136-145); UREA NITROGEN, BLOOD 31 mg/dL (7-18)
[2019-03-26] MEDS: INSULIN ASPART/LISPRO 100 UNIT/ML CARTRIDGE SQ SCH ×3 (07:30→18:13)
[2019-03-26 08:00] VITALS: BP 128/56
--- NOTE | 2019-03-26 08:00 | NUR ---
RN NOTES RECEIVED PATIENT IN THE BED A/O X2/3 KOREAN SPEAKER MALE. PATIENT HAS NO ACUTE RESPIRATORY DISTRESS, V/S TAKEN STABLE, ADMINISTERED SCHEDULED MEDICATION. PATIENT HAS A LEFT SIDED WEAKNESS, BED BOUND WITH HELP OF TURN AND REPOSTION Q 2 HR. BS-104 MG/DL NO COVERAGE GIVEN. PATIENT TOLERATED BREAKFAST 25 %. PATIENT USING URINAL, INFUSING NS AT RIGHT HAND INTACT 75 ML/HR. CALL LIGHT WITHIN TO REACH. PATIENT REFUSED PAIN AT THIS TIME. SAFETY PRECAUTION MAINTAINED ALL THE TIME.
[2019-03-26] MEDS: ASPIRIN EC 81 MG TABLET.DR PO SCH (09:01)
[2019-03-26] MEDS: AMLODIPINE BESYLATE 10 MG TABLET PO SCH (09:02)
[2019-03-26] MEDS: CLOPIDOGREL BISULFATE 75 MG TABLET PO SCH (09:02)
[2019-03-26 09:42] LABS: ALBUMIN 1.7 g/dL (3.4-5.0); BILIRUBIN,DIRECT 0.1 mg/dL (0.0-0.2); BILIRUBIN,TOTAL 0.3 mg/dL (0.2-1.0); TOTAL PROTEIN, SERUM 6.6 g/dL (6.4-8.2)
[2019-03-26] MEDS: LOSARTAN POTASSIUM 50 MG TABLET PO SCH ×2 (10:52→17:52)
[2019-03-26] MEDS: SOTALOL HCL 80 MG TABLET PO SCH (10:53)
--- NOTE | 2019-03-26 12:00 | NUR ---
RN NOTES BS-150 MG/DL ADMINISTERED SCHEDULED MEDICATION, PATIENT EAT LUNCH 25%, ASSIST TURN AND REPOSTION Q2 HR, INFUSING VANCOMYCIN 250 ML/HR ON RIGHT FA INTACT. DAUGHTER NEXT TO THE BED, SAFETY PRECAUTION MAINTAINED ALL THE TIME.
[2019-03-26] MEDS: VANCOMYCIN 0.75 GM in IV D5W 250 ML IV SCH (12:37)
[2019-03-26] MEDS: CEFTRIAXONE 1 G in IV D5W 50 ML IV SCH (13:26)
[2019-03-26] MEDS: IV NS 0.9% 1,000 ML IV PRN (13:26)
[2019-03-26 16:00] VITALS: BP 144/68
--- NOTE | 2019-03-26 17:00 | NUR ---
rn notes BS-143 MG/DL COVERAGE GIVEN, PATIENT TOLERATED DINNER 25%, ADMINISTERED SCHEDULED MEDICATION, V/S STABLE, ASSIST PATIENT TURN AND REPOSTION Q 2 HR, INFUSING NS AT 75 ML/HR ON RIGHT FA INTACT, CALL LIGHT WITHIN TO REACH, CONTINUED MONITORING.
--- NOTE | 2019-03-26 18:30 | NUR ---
RN NOTES PATIENT STABLE ASSIST TURN AND REPOSTION Q 2 HR, NO COMPLAINING OF PAIN. INFUSING NS AT 75 ML/HR ON RIGHT FA. CALL LIGHT WITHIN TO REACH. ENDORSED ONCOMING NURSE FOLLOW PLAN OF CARE.
--- NOTE | 2019-03-26 19:30 | NUR ---
MS RN NOTES RECEIVED ON BED A/O X1-2,BREATHING REGULAR,NOT IN ANY FORM OF DISTRESS.IVF NS AT 75ML/HR RATE IN PROGRESS VIA IV PUMP ON RFA #20.INCONTINENT OF URINE,FALL PRECAUTION OBSERVED,BED ALARM TRIGGERED.BED ON LOWEST POSITION AND LOCKED.WILL MONITOR CONSTANTLY FOR SAFETY.
[2019-03-26 20:00] VITALS: BP_SYST 147; BP_DIAS 71; BP_DIAS 77
[2019-03-26] MEDS: TAMSULOSIN 0.4 MG CAP.SR.24H PO SCH (21:51)
[2019-03-26] MEDS: ENOXAPARIN SODIUM 30 MG/0.3 ML DISP.SYRIN SQ SCH (21:52)
--- NOTE | 2019-03-27 | NUR ---
MS RN NOTES ACCU-CHECK BLOOD SUGAR CHECK 98,NO INSULIN COVERAGE.
[2019-03-27] MEDS: BLOOD SUGAR DIAGNOSTIC 1 EACH STRIP IN SCH ×4 (00:31→17:27)
[2019-03-27 02:58] LABS: APPEARANCE,URINE SL CLOUDY (CLEAR); BILIRUBIN,URINE NEGATIVE (NEGATIVE); BLOOD, URINE MODERATE Ery/uL (NEGATIVE); COLOR,URINE YELLOW (YELLOW); KETONES,URINE NEGATIVE (NEGATIVE); LEUKOCYTE ESTERASE ,URINE SMALL (NEGATIVE); NITRITE, URINE NEGATIVE (NEGATIVE); PH,URINE 5.5 (5.0-8.0); PROTEIN,URINE 100 mg/dl (NEGATIVE); UGLUCOSE 100 MG/DL mg/dL (NEGATIVE); UROBILINOGEN,URINE 0.2 EU/dL (0.2)
[2019-03-27 03:14] LABS: CREATININE, URINE 45.5 MG/DL (30.0-125.0); URINE TOTAL PROTEIN 164.7 mg/dL (0-11.9)
[2019-03-27 03:33] LABS: BACTERIA,URINE None seen /HPF (None Seen); SQUAMOUS EPITHELIAL CELL,UR Few /HPF (None Seen)
[2019-03-27] MEDS: VANCOMYCIN 0.75 GM in IV D5W 250 ML IV SCH (04:20)
[2019-03-27] MEDS: hydrALAZINE HCL 25 MG TABLET PO SCH ×2 (04:51→12:01)
--- NOTE | 2019-03-27 06:00 | NUR ---
MS RN NOTES ACCU-CHECK BLOOD SUGAR CHECK 130,NO INSULIN COVERAGE.
[2019-03-27 06:58] LABS: CALCIUM, SERUM 8.1 mg/dL (8.5-10.1); CARBON DIOXIDE 21 mmol/L (21-32); CHLORIDE 106 mmol/L (98-107); GLUCOSE 145 mg/dL (74-106); POTASSIUM 3.4 mmol/L (3.5-5.1); SODIUM SERUM 137 mmol/L (136-145); UREA NITROGEN, BLOOD 22 mg/dL (7-18)
[2019-03-27] MEDS: IV NS 0.9% 1,000 ML IV PRN (07:00)
--- NOTE | 2019-03-27 07:11 | NUR ---
MS RN NOTES FAIRLY RESTED AT NIGHT,AFEBRILE,IVF IN PROGRESS.POSSIBLE D/C PLANNING,BACK TO [facility].IN NO ACUTE DISTRESS.ENDORSE TO DAY NURSE FOR KITTY.
[2019-03-27] MEDS: INSULIN ASPART/LISPRO 100 UNIT/ML CARTRIDGE SQ SCH ×3 (07:56→17:30)
[2019-03-27 07:57] VITALS: BP 138/66
--- NOTE | 2019-03-27 08:00 | NUR ---
MS RN OPENING NOTES RECEIVED PT IN BED, AWAKE, ALERT AND ORIENTED X1-2, ARABIC SPEAKING ONLY. NO CARDIAC OR RESPIRATORY DISTRESS NOTED. BREATHING EVEN AND UNLABORED. BREATH SOUBNDS CLEAR. NO COMPLAINTS OF PAIN OR DISCOMFORT. IV FLUIDS RUNNING NS @ 75CC/HR. IV SITE INTACT. NO S/S OF INFECTION OR INFILTRATION NOTED. KCL GIVEN POTASSIUM REPLACEMENT THIS AM. PT ATE BREAKFAST. ALL DUE MEDS GIVEN. TOLERATED WELL. NO ASE NOTED.
[2019-03-27] MEDS: LOSARTAN POTASSIUM 50 MG TABLET PO SCH ×2 (08:47→17:29)
[2019-03-27] MEDS: CLOPIDOGREL BISULFATE 75 MG TABLET PO SCH (08:47)
[2019-03-27] MEDS: AMLODIPINE BESYLATE 10 MG TABLET PO SCH (08:47)
[2019-03-27] MEDS: ASPIRIN EC 81 MG TABLET.DR PO SCH (08:47)
[2019-03-27] MEDS: SOTALOL HCL 80 MG TABLET PO SCH (08:53)
[2019-03-27] MEDS: POTASSIUM CHLORIDE 20 MEQ TAB.PRT.SR PO SCH ×2 (08:57→08:58)
--- NOTE | 2019-03-27 09:24 | NUR ---
[facility] RESULTS DR CORONADO NOTIFIED RE [facility] RESULTS.
--- NOTE | 2019-03-27 09:48 | NUR ---
DR CORONADO CALLED BACK RE [facility] RESULTS AND SAID TO NOTIFY DR. ACEVEDO. PER DR ACEVEDO. NNO
[2019-03-27 10:11] VITALS: BP 138/66
[2019-03-27] MEDS: CEFTRIAXONE 1 G in IV D5W 50 ML IV SCH (11:50)
--- NOTE | 2019-03-27 12:05 | NUR ---
RN NOTES DU6350 MG/DL NO COVERAGE GIVEN, ADMINISTERED SCHEDULED MEDICATION, INFUSING ROCEPHIN 1 G 100 ML/HR ON RIGHT FA INTACT. SON NEXT TO THE BED . ASSIST TURN AND REPOSTION Q 2 HR. CONTINUED MONITORING.
[2019-03-27] MEDS ORDERED: AMPI500C11 PO (13:55)
[2019-03-27 16:11] LABS: *SPE A/G RATIO 0.5 (0.7-1.7); *SPE ALBUMIN 1.9 g/dL (2.9-4.4); *SPE ALPHA-1-GLOBULIN 0.2 g/dL (0.0-0.4); *SPE GLOBULIN, TOTAL 3.9 g/dL (2.2-3.9); *SPE M-SPIKE Not Observed g/dL (Not Observed); *SPEGAMMA GLOBULIN 1.7 g/dL (0.4-1.8)
[2019-03-27 16:27] VITALS: BP 119/67
[2019-03-27 17:29] VITALS: BP 119/59
[2019-03-27] MEDS: INSULIN REGULAR, HUMAN 100 UNIT/ML 3 ML VIAL SQ PRN (17:31)
--- NOTE | 2019-03-27 17:43 | NUR ---
ELECTROLYSIS NEEDLE OPERATOR NOTES PATIENT DISCHARGE AT THIS TIME GOING BACK TO SNF. PATIENT STABLE, V/S WNL, BS-220 COVERAGE GIVEN, REFUSED PAIN. MED RECONCILIATION AND DISCHARGE ORDERS REVIEWED AND EXPLAINED TO. REPORT GIVEN SNF RN ITALO. RN VERBALIZED UNDERSTANDING . PATIENT HAS NO BELONGING. FAMILY NEXT TO THE BED. PATIENT WILL FOLLOW SNF TOBACCO FARMWORKER. PATIENT EARLY CHILDHOOD ASSOCIATE BY AMBULANCE.
[2019-03-28 15:06] LABS: PTH, INTACT 17 pg/mL (15-65)
== END 2019-03-27 17:45 | DRG 871 ==
LOC: ER 15:21 → TELE 18:00 → MED 03-24 08:52
PROVIDERS: ADMIT Nurse Practitioner Acute Care; ATTEND Nurse Practitioner Acute Care
DX: A41.9 Sepsis, unspecified organism (principal); N17.0 Acute kidney failure with tubular necrosis; I21.A1 Myocardial infarction type 2; N39.0 Urinary tract infection, site not specified; E87.1 Hypo-osmolality and hyponatremia; E87.2 Acidosis; G93.40 Encephalopathy, unspecified; M62.82 Rhabdomyolysis; F03.91 Unspecified dementia, unspecified severity, with behavioral disturbance; E46 Unspecified protein-calorie malnutrition; E11.65 Type 2 diabetes mellitus with hyperglycemia; E86.0 Dehydration; E87.5 Hyperkalemia; K21.9 Gastro-esophageal reflux disease without esophagitis; M19.90 Unspecified osteoarthritis, unspecified site; N40.0 Benign prostatic hyperplasia without lower urinary tract symptoms; Z79.4 Long term (current) use of insulin; Z79.82 Long term (current) use of aspirin; Z79.02 Long term (current) use of antithrombotics/antiplatelets; R74.0 Nonspecific elevation of levels of transaminase and lactic acid dehydrogenase [LDH]; E88.09 Other disorders of plasma-protein metabolism, not elsewhere classified; B96.20 Unspecified Escherichia coli [E. coli] as the cause of diseases classified elsewhere; I95.9 Hypotension, unspecified; Z68.21 Body mass index [BMI] 21.0-21.9, adult; I10 Essential (primary) hypertension
CPT/HCPCS: 36415; 71045-TC; 76700-TC; 78226; 80048-TC; 80053-TC; 80061-TC; 80076-TC; 80202-TC; 81000-TC; 82550-TC; 82570-TC; 82962-TC; 83540-TC; 83605-TC; 83735-TC; 83970; 84100-TC; 84155; 84155-TC; 84165; 84300-TC; 84443-TC; 84484-TC; 85025-TC; 87040-TC; 87081-TC; 87086-TC; 87186-TC; 93307-TC; 97112-TC; 97530-TC; A9537; G0378; J0696; J1650; J1815; J2543; J3370; J3490; J7030; J7040; J7042; J7060

== ENCOUNTER 2019-07-27 17:35 | Emergency (ER) | payer MEDICARE, OTHER ==
[~2019-07-27] VITALS: Ht 167.6 cm; Wt 53.5 kg
[~2019-07-27 17:35] MED LIST changes: +ACET-868 PO; +AMLO10TA4 PO; +AMPI500C11 PO; -BENA40TA8 PO; +CLONIDINE PATCH; +CLOP75TA15 PO; +DOCU-141 PO; -DONE5TAB7 PO; +ENOX40DI SQ; +FURO-144 PO; +HYDR-4076 PO; +INSU100I4 SQ; +INSU100V7 SQ; -ISOS60TA4 PO; +LANS30CA56 PO; +LINA72CA PO; +LOSA50TA3 PO; -METF-440 PO; -ROSU20TA2 PO; +ROSU40TA PO; -SITA100T PO; +SOTA80TA PO; +SPIR50TA5 PO; +TAMS-12 PO
[2019-07-27 18:40] LABS: BASOPHILS % (AUTO) 0.2 % (0.0-2.0); EOSINOPHILS % (AUTO) 0.1 % (0.0-6.0); HEMATOCRIT 31 % (39-51); HEMOGLOBIN 10.3 g/dL (13.5-17.5); LYMPHOCYTES # (AUTO) 0.7 /CMM (0.8-4.8); LYMPHOCYTES % (AUTO) 4.2 % (20.0-44.0); MEAN CORPUSCULAR HGB CONC 34 g/dl (31.0-36.0); MEAN CORPUSCULAR VOLUME 94 fL (80-96); MONOCYTES # (AUTO) 0.6 /CMM (0.1-1.30); NEUTROPHILS # (AUTO) 14.2 /CMM (1.8-8.9); NEUTROPHILS % (AUTO) 91.5 % (43.0-81.0); PLATELET COUNT (AUTO) 326 /CMM (150-450); RED BLOOD CELL COUNT(AUTO) 3.29 MIL/uL (4.5-6.0); WHITE BLOOD COUNT (AUTO) 15.5 K/uL (4.3-11.0)
[2019-07-27] MEDS ORDERED: CLON1PAT TD (18:50)
[2019-07-27] MEDS ORDERED: FERR325T24 PO (18:50)
[2019-07-27] MEDS ORDERED: CALC-7 PO (18:50)
[2019-07-27] MEDS ORDERED: INSU100V11 SQ (18:50)
[2019-07-27] MEDS ORDERED: AMIN30LI27 PO (18:50)
[2019-07-27] MEDS ORDERED: CRAN3875 PO (18:50)
[2019-07-27] MEDS ORDERED: CRAN425C6 PO (18:50)
[2019-07-27] MEDS ORDERED: MAGN400O6 PO (18:50)
[2019-07-27] MEDS ORDERED: BLOO-668 IN (18:50)
[2019-07-27] MEDS ORDERED: SULF1TAB48 PO (18:50)
[2019-07-27] MEDS ORDERED: CICL6.6S5 TP (18:50)
[2019-07-27 18:55] LABS: CALCIUM, SERUM 8.5 mg/dL (8.5-10.1); CARBON DIOXIDE 21 mmol/L (21-32); CHLORIDE 99 mmol/L (98-107); CREATININE 1.6 mg/dL (0.6-1.3); GLUCOSE 101 mg/dL (74-106); SODIUM SERUM 129 mmol/L (136-145); UREA NITROGEN, BLOOD 28 mg/dL (7-18)
--- NOTE | 2019-07-27 18:58 | NUR ---
Note undone in EDM - 07/28/19 at 0133 by [facility] 12. AAOX3. NOT IN RESP DISTRESS. AMBUALTORY. BROUGHT IN FOR GENERALIZED WEAKNESS AND HYPOGLYCEMIA. 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 NOT CONTRACTURE ON R ARM. PT WAS ALSO REPORTED TO HAVE HYPOGLYCEMIA AT THE FACILTY BUT ALREADY @ 95 LOADER MAGAZINE GRINDER, PT RECEIVED GLUCAGON. WAS AT BEDSIDE FOR EVAL. IV LINE OBTAINED ON THE R WRIST WITH 20G. BLOOD DRAWN AND GIVEN TO SET UP / OPERATOR AT BEDSIDE. PT PLACED ON MONITOR. WILL CONTINUE TO MONITOR.
[2019-07-27 19:06] LABS: ALANINE AMINOTRANSFERASE 18 U/L (12-78); ALBUMIN 2.3 g/dL (3.4-5.0); ALKALINE PHOSPHATASE 90 U/L (46-116); ASPARTATE AMINOTRANSFERASE 34 U/L (15-37); BILIRUBIN,TOTAL 0.4 mg/dL (0.2-1.0); LIPASE 96 U/L (73-393); TOTAL PROTEIN, SERUM 7.2 g/dL (6.4-8.2)
[2019-07-27 19:28] LABS: B-TYPE NATRIURETIC PEPTIDE 4494 PG/ML (0-125)
[2019-07-27 19:33] LABS: D-DIMER 0.59 mg/L(FEU (0.17-0.50)
--- NOTE | 2019-07-27 19:58 | NUR ---
RABIA FROM [facility] TO ER BED 12. AAOX3. NOT IN RESP DISTRESS. NON AMBULATORY. BROUGHT IN FOR GENERALIZED WEAKNESS AND HYPOGLYCEMIA. 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 NOT CONTRACTURE ON R ARM. PT WAS ALSO REPORTED TO HAVE HYPOGLYCEMIA AT THE FACILTY BUT ALREADY @ 95 INNER TUBE CUTTER, PT RECEIVED GLUCAGON. WAS AT BEDSIDE FOR EVAL. IV LINE OBTAINED ON THE R WRIST WITH 20G. BLOOD DRAWN AND GIVEN TO OPERATIONS BUSINESS PARTNER AT BEDSIDE. PT PLACED ON MONITOR. WILL CONTINUE TO MONITOR.
[2019-07-27 21:19] LABS: C-REACTIVE PROTEIN 7.5 mg/dL (0.0-0.9); CREATINE KINASE, TOTAL 127 U/L (39-308); FERRITIN 534 ng/mL (8-388)
[2019-07-27] MEDS ORDERED: FUROSEMIDE 40 MG/4 ML VIAL IV ONE (21:30)
[2019-07-27] MEDS ORDERED: SODIUM POLYSTYRENE SULFONATE 15 G/60 ML BOTTLE PO ONE (21:30)
[2019-07-27] MEDS ORDERED: CALCIUM CHLORIDE 1,000 MG/10 ML DISP.SYRIN IV ONE (21:30)
--- NOTE | 2019-07-27 21:44 | NUR ---
# FOR REPORT [facility]. [phone]
[2019-07-27] MEDS ORDERED: SODIUM POLYSTYRENE SULFONATE 15 G/60 ML BOTTLE ONE (21:56)
[2019-07-27] MEDS ORDERED: CALCIUM CHLORIDE 1,000 MG/10 ML DISP.SYRIN ONE (21:56)
[2019-07-27] MEDS ORDERED: FUROSEMIDE 20 MG/2 ML VIAL ONE (21:56)
--- NOTE | 2019-07-27 22:29 | NUR ---
REPORT GIVEN TP ANNEMARIE RN FOR KITTY AT THE [facility]. PT GOING TO [facility] ROOM 311
--- NOTE | 2019-07-27 22:32 | NUR ---
MD AWARE OF BS OF 40. PT WAS GIVEN FOOD AND ORANGE JIUCE PER MD ORDERED
--- NOTE | 2019-07-27 22:37 | NUR ---
[facility] CALLED FOR [facility] TRANSPORT ETA 0030. TRIP# .[phone]
--- NOTE | 2019-07-28 01:37 | NUR ---
RULA 116 @ BEDSIDE FOR TRANSPORT TO [facility]. REPORT GIVEN. PT IS IN STABEL CONDITION. VSS
[2019-07-28 01:38] VITALS: BP 135/66
--- NOTE | 2019-07-28 01:40 | NUR ---
PT LEAVING ON [facility] W/ 2 AMBULANCE STAFF.
== END 2019-07-28 01:40 | disposition other institution (70) ==
LOC: ER 17:45
DX: M24.562 Contracture, left knee (principal); E87.5 Hyperkalemia; E87.1 Hypo-osmolality and hyponatremia; F03.90 Unspecified dementia, unspecified severity, without behavioral disturbance, psychotic disturbance, mood disturbance, and anxiety; I10 Essential (primary) hypertension; K21.9 Gastro-esophageal reflux disease without esophagitis; E11.9 Type 2 diabetes mellitus without complications; Z79.4 Long term (current) use of insulin; Z79.82 Long term (current) use of aspirin; Z79.899 Other long term (current) drug therapy; Z86.73 Personal history of transient ischemic attack (TIA), and cerebral infarction without residual deficits
CPT/HCPCS: 36415; 71045; 73564; 80048; 80076; 82550; 82728; 82962 ×3; 83615; 83690; 83880; 84145; 84484; 85025; 85378; 85730; 86140; 93005 ×2; 96374; 96375; 99285; J1940; J3490; 87081-TC

== ENCOUNTER 2019-08-03 22:31 | Inpatient (IN) | payer MEDICARE, OTHER ==
[~2019-08-03] VITALS: Ht 167.6 cm; Wt 54.9 kg
[~2019-08-03 22:31] MED LIST changes: +AMIN30LI27 PO; -AMPI500C11 PO; +BLOO-668 IN; +CALC-7 PO; +CICL6.6S5 TP; +CLON1PAT TD; -CLONIDINE PATCH; +CRAN3875 PO; +CRAN425C6 PO; +FERR325T24 PO; +INSU100V11 SQ; +MAGN400O6 PO; +SULF1TAB48 PO
[2019-08-03] MEDS ORDERED: ASPIRIN 325 MG TABLET ONE (22:49)
[2019-08-03] MEDS ORDERED: ACETAMINOPHEN ES 500 MG TABLET ONE (22:49)
[2019-08-03] MEDS ORDERED: ASPIRIN 325 MG TABLET PO ONE (23:00)
[2019-08-03] MEDS ORDERED: ACETAMINOPHEN 325 MG TABLET PO ONE (23:00)
[2019-08-03 23:09] LABS: CALCIUM, SERUM 8.5 mg/dL (8.5-10.1); CREATININE 1.1 mg/dL (0.6-1.3); POTASSIUM 4.3 mmol/L (3.5-5.1)
--- NOTE | 2019-08-03 23:20 | NUR ---
bisi bragg from [facility] c/o chest pain and lower extremity pain. a/o x2 101 oral temp. line started, blood and urine sent to lab. tech at bedside for xray
[2019-08-03 23:21] LABS: BASOPHILS # (AUTO) 0.1 /CMM (0.0-0.2); BASOPHILS % (AUTO) 0.9 % (0.0-2.0); EOSINOPHILS % (AUTO) 1.7 % (0.0-6.0); HEMATOCRIT 28 % (39-51); HEMOGLOBIN 9.5 g/dL (13.5-17.5); LYMPHOCYTES # (AUTO) 0.7 /CMM (0.8-4.8); LYMPHOCYTES % (AUTO) 4.6 % (20.0-44.0); MEAN CORPUSCULAR HGB CONC 34 g/dl (31.0-36.0); MEAN CORPUSCULAR VOLUME 93 fL (80-96); MONOCYTES # (AUTO) 0.9 /CMM (0.1-1.30); MONOCYTES % (AUTO) 5.6 % (2.0-12.0); NEUTROPHILS # (AUTO) 13.3 /CMM (1.8-8.9); NEUTROPHILS % (AUTO) 87.2 % (43.0-81.0); PLATELET COUNT (AUTO) 365 /CMM (150-450); RED BLOOD CELL COUNT(AUTO) 3.01 MIL/uL (4.5-6.0); WHITE BLOOD COUNT (AUTO) 15.2 K/uL (4.3-11.0)
[2019-08-03 23:39] LABS: ALKALINE PHOSPHATASE 111 U/L (46-116); ASPARTATE AMINOTRANSFERASE 24 U/L (15-37); BILIRUBIN,DIRECT 0.2 mg/dL (0.0-0.2); BILIRUBIN,TOTAL 0.5 mg/dL (0.2-1.0)
[2019-08-03 23:40] LABS: ALANINE AMINOTRANSFERASE 12 U/L (12-78); ALBUMIN 2.5 g/dL (3.4-5.0); TOTAL PROTEIN, SERUM 7.4 g/dL (6.4-8.2)
--- NOTE | 2019-08-03 23:45 | NUR ---
PT SLEEPING COMFORTABLY IN BED NO APPARENT DISTRESS OR DISCOMFORT BREATHIGN EVEN AND UNLABORED ON ROOM AIR
[2019-08-03] MEDS ORDERED: AZITHROMYCIN 500 MG VIAL ONE (23:47)
[2019-08-03] MEDS ORDERED: CEPH-570 PO (23:49)
--- NOTE | 2019-08-03 23:49 | NUR ---
BED ASSIGNMENT 104
[2019-08-04] VITALS (8 sets, daily range): BP systolic 121–147; BP diastolic 57–81
[2019-08-04] MEDS ORDERED: AZITHROMYCIN 500 MG in IV D5W 250 ML IV ONE ×2
--- NOTE | 2019-08-04 00:07 | NUR ---
REPORT GIVEN TO YOUSIF ALVAREZ IN CLAUDY
[2019-08-04] MEDS ORDERED: ACETAMINOPHEN 325 MG TABLET PO PRN (00:30)
[2019-08-04] MEDS ORDERED: MAGNESIUM HYDROXIDE 30 ML UDC PO PRN (00:30)
[2019-08-04] MEDS ORDERED: Z GUARD REMEDY 2 OZ OINT TP PRN (00:30)
[2019-08-04] MEDS ORDERED: ZOLPIDEM TARTRATE 5 MG TABLET PO PRN (00:30)
[2019-08-04] MEDS ORDERED: ONDANSETRON HCL/PF 4 MG/2 ML VIAL IVP PRN (00:30)
[2019-08-04] MEDS ORDERED: MORPHINE SULFATE INJ 2 MG/ML DISP.SYRIN IV PRN (00:30)
[2019-08-04] MEDS ORDERED: HYDROCODONE/APAP 5/325MG 1 EACH TABLET PO PRN (00:30)
[2019-08-04] MEDS ORDERED: NITROGLYCERIN 0.4 MG/TAB BOTTLE SL PRN (00:30)
[2019-08-04] MEDS ORDERED: MAG HYDROX/AL HYDROX/SIMETH 30 ML UDC PO PRN (00:30)
--- NOTE | 2019-08-04 00:40 | NUR ---
TELE/RN NEW ADMISSION NOTES RECEIVED PATIENT FROM ER ACCOMPANIED BY RN ON A GURNEY, MALIA IS 83 YO WITH COVID POSITIVE RESULT UPON ADMISSION COMPLAINING OF CHEST PAIN AND EXTREMITIES PAIN WITH MULTIPLE COMMORBIDITIES, ON FULL CODE, WITH NKA. SKIN WARM TO TOUCH, LEFT ARM CONTRACTED AND WITH SOME PAIN. ON ROOM AIR RESPIRATIONS EVEN AND UNLABORED, SKIN INTACT AND DRY. RFA GAUGE 20 AND HEMANTH GAUGE 22 PATENT. VIOLETA WAS BROUGHT FROM SNF AND TO MONITOR, ON TELE AT ,ON ANTIBIOTIC THERAPY, IV FLUIDS ADMINISTERED, TO MONITOR. BED LOCKED, SKIN ASSESSED WITH SOME REDNESS AND DISCOLORATION ON HEEL AND LEFT ELBOW,MD SANCHEZ IS ADMITTING JOSE AMADO RECONCILED AND REPORTED.
--- NOTE | 2019-08-04 00:47 | NUR ---
HELIONFERED PT TO FLOOR
[2019-08-04] MEDS ORDERED: DEXTROSE 50%-WATER 50 ML DISP.SYRIN IV PRN (01:00)
[2019-08-04] MEDS ORDERED: VANCOMYCIN 1 GM in IV D5W 250 ML IV ONE (01:00)
[2019-08-04] MEDS ORDERED: VANCOMYCIN 1 GM VIAL ONE (01:11)
[2019-08-04] MEDS: IV NS 0.9% 1,000 ML IV PRN ×2 (03:20→16:25)
--- NOTE | 2019-08-04 06:08 | NUR ---
104-tele/rn closing notes PATIENT ABLE TO SLEEP DURING THE NIGHT, ON CONTACT ISOLATION FOR POSITIVE RESULT COVID 19. ALERT X2, RESPIRATIONS EVEN AND UNLABORED, ON ROOM AIR, PROPER HYGINE/PPE FOLLOWED. IV ON RFA AND HEMANTH PATENT. ON IV FLUID AND ON ANTIBIOTIC THERAPHY. MONITORED FOR ANY CHANGES. BED LOCKED, CALL LIGHTS WIHTIN REACH. WILL ENDORSE TO AM RN FOR KITTY. TELE SR.
[2019-08-04] MEDS ORDERED: FEE PK DOSING 1 MIN EA MC ONE (06:50)
[2019-08-04] MEDS: BLOOD SUGAR DIAGNOSTIC 1 EACH STRIP IN SCH ×4 (07:46→22:57)
[2019-08-04] MEDS: PANTOPRAZOLE 40 MG TABLET.DR PO SCH (07:46)
--- NOTE | 2019-08-04 07:50 | NUR ---
RESEARCH PROGRAM ASSISTANT NOTES BLOOD SUGAR 123MG/DL. NO COVER.
--- NOTE | 2019-08-04 08:21 | NUR ---
GAME MANAGER LAB CALL FROM [facility], PRO CALCITONIN RESULT IS 3.35 CRITICAL.
--- NOTE | 2019-08-04 08:21 | NUR ---
MEDICAL UNDERWRITER NOTES LAB CALLED C/O STEFF. PROCALCITONIN 3.35.
[2019-08-04] MEDS ORDERED: CEFEPIME 1 GM in IV D5W 50 ML IV SCH (09:00)
--- NOTE | 2019-08-04 09:15 | NUR ---
DENT REMOVER NOTES TEXTED DR. Michelle YORK REGARDING PATIENT'S PROCALITONIN RESULT 3.35.
--- NOTE | 2019-08-04 09:15 | NUR ---
PHYS THER TEXTED DR. YORK REGARDING PRO CALCITONIN 3.35 CRITICAL.
[2019-08-04] MEDS: ASPIRIN 81 MG TAB.CHEW PO SCH (09:21)
[2019-08-04] MEDS: CEFEPIME 2 GM in IV D5W 100 ML IV SCH ×2 (09:22→21:11)
[2019-08-04] MEDS: DOXYCYCLINE HYCLATE (100 MG) 100 MG TABLET PO SCH (09:22)
[2019-08-04 09:37] LABS: CALCIUM, SERUM 7.9 mg/dL (8.5-10.1); CREATININE 1.2 mg/dL (0.6-1.3); POTASSIUM 3.4 mmol/L (3.5-5.1)
[2019-08-04 09:41] LABS: BASOPHILS % (AUTO) 0.3 % (0.0-2.0); EOSINOPHILS % (AUTO) 0.4 % (0.0-6.0); HEMATOCRIT 25 % (39-51); HEMOGLOBIN 8.4 g/dL (13.5-17.5); LYMPHOCYTES # (AUTO) 0.9 /CMM (0.8-4.8); LYMPHOCYTES % (AUTO) 6.2 % (20.0-44.0); MEAN CORPUSCULAR HGB CONC 34 g/dl (31.0-36.0); MEAN CORPUSCULAR VOLUME 94 fL (80-96); MONOCYTES # (AUTO) 0.9 /CMM (0.1-1.30); MONOCYTES % (AUTO) 6.3 % (2.0-12.0); NEUTROPHILS # (AUTO) 12.8 /CMM (1.8-8.9); NEUTROPHILS % (AUTO) 86.8 % (43.0-81.0); PLATELET COUNT (AUTO) 279 /CMM (150-450); RED BLOOD CELL COUNT(AUTO) 2.67 MIL/uL (4.5-6.0); WHITE BLOOD COUNT (AUTO) 14.7 K/uL (4.3-11.0)
[2019-08-04 09:44] LABS: BILIRUBIN,TOTAL 0.3 mg/dL (0.2-1.0); MAGNESIUM 1.9 mg/dL (1.8-2.4); TOTAL PROTEIN, SERUM 5.8 g/dL (6.4-8.2)
--- NOTE | 2019-08-04 09:54 | NUR ---
ADOPTION SERVICES MANAGER OPENING NOTES RECEIVED PATIENT FROM HEALTH EDUCATION DIRECTOR NURSE, IN BED, AWAKE, CONSCIOUS, COOPERATIVE, BREATHING AT ROOM AIR, NO SIGNS OF RESPIRATORY DISTRESS, RFA 20G, HEMANTH 22G, SIDE RAILS UP.
--- NOTE | 2019-08-04 11:18 | NUR ---
RN PEDIATRIC ICU NOTES BLOOD SUGAR 120MG/DL. NO COVER.
[2019-08-04] MEDS: VANCOMYCIN 0.75 GM in IV D5W 250 ML IV SCH (12:35)
--- NOTE | 2019-08-04 17:13 | NUR ---
OFFICE SUPPORT ASSISTANT NOTES BLOOD SUGAR 90MG/DL. NO COVER.
--- NOTE | 2019-08-04 18:39 | NUR ---
BUSINESS OBJECTS ANALYST CLOSING NOTES ENDORSED PATIENT TO NIGHT IN BED, AWAKE, A/0 X2, BREATHING AT ROOM AIR, NO SIGNS OF RESPIRATORY DISTRESS, HEMANTH 22G, RFA 20G NS AT 75ML/HR, INFUSING WELL, NO SIGNS OF REDNESS OR INFILTRATION NOTED, SIDE RAILS UP FOR SAFETY.
--- NOTE | 2019-08-04 19:10 | NUR ---
TIRE BUILDER OPERATOR NOTES RECEIVED PT IN BED AWAKE AND ABLE TO MAKE NEEDS KNOWN. PT A/O X2. RESPIRATIONS EVEN AND UNLABORED WITH NO S/S OF ACUTE DISTRESS OR SOB NOTED. NO COMPLAINTS OF PAIN AT THIS TIME. SAFETY MEASURES IN PLACE WITH BED IN LOWEST LOCKED POSITION WITH SIDE RAILS UP X2. CALL LIGHT WITHIN REACH. WILL CONTINUE TO MONITOR.
[2019-08-05] VITALS: BP 135/69
[2019-08-05] MEDS: VANCOMYCIN 0.75 GM in IV D5W 250 ML IV SCH ×2 (00:21→12:29)
[2019-08-05 04:00] VITALS: BP 144/70
--- NOTE | 2019-08-05 04:39 | NUR ---
COP NOTES LAB CALLED WITH BLOOD CX RESULTS POSITIVE FOR GRAM NEGATIVE RODS. MADE AWARE. NO NEW ORDERS SINCE PT ON VANCO AND CEFEPIME. WILL CONTINUE TO MONITOR.
[2019-08-05 06:27] LABS: BASOPHILS % (AUTO) 0.5 % (0.0-2.0); EOSINOPHILS % (AUTO) 2.9 % (0.0-6.0); HEMATOCRIT 23 % (39-51); HEMOGLOBIN 8.1 g/dL (13.5-17.5); LYMPHOCYTES % (AUTO) 15.9 % (20.0-44.0); MEAN CORPUSCULAR HGB CONC 35 g/dl (31.0-36.0); MEAN CORPUSCULAR VOLUME 93 fL (80-96); MONOCYTES # (AUTO) 0.6 /CMM (0.1-1.30); MONOCYTES % (AUTO) 9.8 % (2.0-12.0); NEUTROPHILS # (AUTO) 4.3 /CMM (1.8-8.9); NEUTROPHILS % (AUTO) 70.9 % (43.0-81.0); PLATELET COUNT (AUTO) 263 /CMM (150-450); RED BLOOD CELL COUNT(AUTO) 2.52 MIL/uL (4.5-6.0); WHITE BLOOD COUNT (AUTO) 6.1 K/uL (4.3-11.0)
--- NOTE | 2019-08-05 07:15 | NUR ---
EMG TECHNICIAN OPENING NOTES RECEIVED PT IN BED. AWAKE, A/O X2, [place]GI[place] SPEAKING AND CAN UNDERSTAND LITTLE/SIMPLE ESTONIAN. PT TOLERATING RA, WITH NO ACUTE RESPIRATORY DISTRESS NOTED. PT DENIES ANY PAIN OR DISCOMFORT AT THIS TIME WELL. PT DENIES ANY CONCERNS OR QUESTIONS. ON TELEMONITORING AT SR 63. IVF NS AT 75 ML/HR TO R HAND G22, INTACT AND OPERATIONAL. PIVS TO RFA G20 AND HEMANTH, CLOGGED, REMOVED AND APPLIED DRY DRESSING. PER TECHNOLOGY OFFICER, MIDLINE WAS ORDERED, AWAITING FOR PLACEMENT. PT KEPT COMFORTABLE IN BED. CALL LIGHT KEPT WITHIN REACH. PT'S BED IN LOWEST, LOCKED POSITION X3. WILL CONTINUE PLAN OF CARE.
--- NOTE | 2019-08-05 07:18 | NUR ---
MEDICAL RECORDS SECRETARY NOTES PT IN BED AWAKE AND ABLE TO MAKE NEEDS KNOWN. PT A/O X2. RESPIRATIONS EVEN AND UNLABORED WITH NO S/S OF ACUTE DISTRESS OR SOB NOTED THROUGHOUT SHIFT. PT KEPT CLEAN, DRY, AND COMFORTABLE. NO COMPLAINTS OF PAIN AT THIS TIME. SAFETY MEASURES IN PLACE WITH BED IN LOWEST LOCKED POSITION WITH SIDE RAILS UP X2. CALL LIGHT WITHIN REACH. WILL ENDORSE TO ONCOMING NURSE FOR KITTY.
[2019-08-05 07:41] LABS: APPEARANCE,URINE SL CLOUDY (CLEAR); BILIRUBIN,URINE NEGATIVE (NEGATIVE); BLOOD, URINE LARGE Ery/uL (NEGATIVE); COLOR,URINE YELLOW (YELLOW); KETONES,URINE NEGATIVE (NEGATIVE); LEUKOCYTE ESTERASE ,URINE NEGATIVE (NEGATIVE); NITRITE, URINE NEGATIVE (NEGATIVE); PROTEIN,URINE >=300 mg/dl (NEGATIVE); UGLUCOSE NEGATIVE (NEGATIVE); UROBILINOGEN,URINE 0.2 EU/dL (0.2)
[2019-08-05 07:48] LABS: BACTERIA,URINE Rare /HPF (None Seen); RBC,URINE 51-80 /HPF (0-2); SQUAMOUS EPITHELIAL CELL,UR 0-2 /HPF (None Seen)
[2019-08-05 08:00] VITALS: BP 141/75
[2019-08-05] MEDS: BLOOD SUGAR DIAGNOSTIC 1 EACH STRIP IN SCH ×4 (08:00→22:08)
[2019-08-05] MEDS: DOXYCYCLINE HYCLATE (100 MG) 100 MG TABLET PO SCH (08:18)
[2019-08-05] MEDS: CEFEPIME 2 GM in IV D5W 100 ML IV SCH ×2 (08:18→21:15)
[2019-08-05] MEDS: PANTOPRAZOLE 40 MG TABLET.DR PO SCH (08:18)
[2019-08-05] MEDS: ASPIRIN 81 MG TAB.CHEW PO SCH (08:18)
[2019-08-05 10:41] LABS: CREATININE 0.9 mg/dL (0.6-1.3); MAGNESIUM 1.8 mg/dL (1.8-2.4); PHOSPHORUS 2.6 mg/dL (2.5-4.9); POTASSIUM 3.5 mmol/L (3.5-5.1)
[2019-08-05] MEDS: IV NS 0.9% 1,000 ML IV PRN (11:02)
[2019-08-05 12:00] VITALS: BP 154/73
--- NOTE | 2019-08-05 14:05 | NUR ---
CONING MACHINE OPERATOR NOTES PT TESTED FOR COVID 19, SITE USED THROUGH RIGHT NARE. SPECIMEN DROPPED TO LAB AT 1400. WILL CONTINUE TO MONITOR.
--- NOTE | 2019-08-05 14:20 | NUR ---
ROLLER SHOP SUPERVISOR NOTES ID/FELT HAT INSPECTOR AND PACKER/LOPEZ MADRIGAL SEEN AND EVALUATED PT. ORDERS PLACED AND CARRIED OUT. PER FELT HAT INSPECTOR AND PACKER/KEVIN FORM FROM LAB NEEDS TO BE COMPLETED BY HER,TO ORDER THE CONVALESCENT PLASMA AND BE FAXED TO [facility] BY THE LAB.
--- NOTE | 2019-08-05 14:23 | NUR ---
COMMUNITY DEVELOPMENT COORDINATOR NOTES FORM FOR CONVALESCENT PLASMA NOW WITH JUDEEN TO FILL UP. WILL SEND TO LAB AFTER. [facility] ONTINUE TO MONITOR.
--- NOTE | 2019-08-05 15:34 | NUR ---
EYEGLASS FITTER NOTES ID/YONI AWARE OF BLOOD CX PRELIMINARY RESULT OF GRAM NEGATIVE RODS. ID/YONI ORDERED REPEAT BLOOD CULTUREX2. HOSPITALIST CC/DNP IN THE UNIT WELL. WILL CONTINUE TO MONITOR.
[2019-08-05 16:00] VITALS: BP 138/70
--- NOTE | 2019-08-05 18:42 | NUR ---
MOTOR COACH SUPERVISOR CLOSING NOTES PT REMAINS IN BED, AWAKE, A/O X2, AZERI SPEAKING AND CAN UNDERSTAND LITTLE/SIMPLE POLISH. PT TOLERATING RA, WITH NO ACUTE RESPIRATORY DISTRESS NOTED. PT DENIES ANY PAIN OR DISCOMFORT AT THIS TIME WELL.ON TELEMONITORING AT SR 73. IVF NS AT 75 ML/HR TO R HAND G22, INTACT AND OPERATIONAL; AWAITING FOR MIDLINE PLACEMENT, CHARGE NURSE/SOON AWARE. PT KEPT COMFORTABLE IN BED. ALL NEEDS AND CARE PROVIDED AND ATTENDED. CALL LIGHT KEPT WITHIN REACH. PT'S BED IN LOWEST, LOCKED POSITION X3. WILL ENDORSE TO INCOMING NIGHT NURSE FOR KITTY.
[2019-08-05 20:00] VITALS: BP 164/76
--- NOTE | 2019-08-05 20:00 | NUR ---
TIER TRUCK DRIVER NOTES PT IN BED AWAKE A/OX 2-3 HEBREW SPEAKING AND ABLE TO MAKE NEEDS KNOWN. ON R/A SATING 98% RESPIRATIONS EVEN AND UNLABORED WITH NO S/S OF ACUTE DISTRESS NO SOB NOTED . PT KEPT CLEAN, DRY, AND COMFORTABLE. NO COMPLAINTS OF PAIN AT THIS TIME. SAFETY MEASURES IN PLACE WITH BED IN LOWEST LOCKED POSITION WITH SIDE RAILS UP X2. CALL LIGHT WITHIN REACH. PRECAUTIONARY MEASURES OBSERVED ALL THE TIME .R/O COVID PENDING RESULT.ALL DUE MEDS GIVEN ORDERED KEPT PTS CLEAN DRY AND COMFORTABLE. RIGHT WRIST g#22 INSERTED PERIPHERAL IV INTACT AND PATENT WITH IVF OF NS AT 75CC/HR INFUSING WELL ,WILL CONTINUE TO MONITOR PTS.
--- NOTE | 2019-08-05 22:00 | NUR ---
SUB PLANT MANAGER NOTES BLOOD SUGAR FOR 10PM IS 103 MG/DL NO COVERAGE GIVEN PER SLIDING SCALE , WILL CHECK BLOOD SUGAR AGAIN IN AM.
[2019-08-05] MEDS: INSULIN REGULAR, HUMAN 100 UNIT/ML 3 ML VIAL SQ PRN (22:10)
[2019-08-06] VITALS: BP 148/60
--- NOTE | 2019-08-06 01:00 | NUR ---
AUSTIN ALVAREZ NOTES RIGHT AC g#18 MIDLINE INSERTED BY FILOMENA GUERRERO INTACT AND PATENT NO BLEEDING NOTED. Addendum: 08/06/19 at 0716 by YUNIOR ESTRADA RN RIGHT UPPER ARM MIDLINE NOT RIGHT AC
[2019-08-06] MEDS: VANCOMYCIN 0.75 GM in IV D5W 250 ML IV SCH ×2 (01:52→12:51)
[2019-08-06 04:00] VITALS: BP 154/60
[2019-08-06] MEDS: IV NS 0.9% 1,000 ML IV PRN ×3 (04:53→20:43)
--- NOTE | 2019-08-06 07:16 | NUR ---
PRICE ANALYST NOTES PTS REMAIN IN BED AWAKE AND RESPONSIVE ,ON R/A SATING 95% NO SOB NO DISTRESS NOTED , STABLE V/S ,WILL ENDORSE TO GLADYS RN FOR CONTINUITY OF CARE.
[2019-08-06 07:41] LABS: CALCIUM, SERUM 7.5 mg/dL (8.5-10.1); CREATININE 0.8 mg/dL (0.6-1.3)
[2019-08-06 08:00] VITALS: BP 157/72
--- NOTE | 2019-08-06 08:00 | NUR ---
rn notes received patient in bed. awake, alert and orientedx1, able to respond appropriately. on room air breathing unlabored. no complaints of pain at this time. sinus rhythm on the monitor with hr on 70s. iv site on the r forearm and upper arm midline in place, dressings dry and intact. safety measures in place. call light within reach, safety measures in plac. will continue to monitor patient accordingly
[2019-08-06] MEDS: CEFEPIME 2 GM in IV D5W 100 ML IV SCH ×2 (08:38→21:20)
[2019-08-06] MEDS: BLOOD SUGAR DIAGNOSTIC 1 EACH STRIP IN SCH ×4 (08:38→23:02)
[2019-08-06] MEDS: PANTOPRAZOLE 40 MG TABLET.DR PO SCH (08:39)
[2019-08-06] MEDS: ASPIRIN 81 MG TAB.CHEW PO SCH (08:42)
[2019-08-06] MEDS ORDERED: POTASSIUM CHLORIDE 20 MEQ TAB.PRT.SR PO SCH (11:00)
[2019-08-06] MEDS: DOXYCYCLINE HYCLATE (100 MG) 100 MG TABLET PO SCH (11:24)
[2019-08-06] MEDS: ENOXAPARIN SODIUM 40 MG/0.4 ML DISP.SYRIN SQ SCH (11:25)
[2019-08-06 12:00] VITALS: BP 148/75
[2019-08-06 16:00] VITALS: BP 130/68
--- NOTE | 2019-08-06 17:00 | NUR ---
rn notes patient complaint of shortness of breath while being feed. place on supplemental oxygen despite good saturation level on the monitor
--- NOTE | 2019-08-06 18:45 | NUR ---
rn notes patient looks comfortable at this time. not on any form of distress, still with oxygen at 2lpm. no complaints of pain. no acute changes within the shift. all nursing needs attended and met. safety measures in place. call light within reach, patient encourage to call for help and assistance. bed in low and locked position
[2019-08-06 20:00] VITALS: BP 168/69
[2019-08-06] MEDS: INSULIN REGULAR, HUMAN 100 UNIT/ML 3 ML VIAL SQ PRN (23:03)
[2019-08-07] VITALS (7 sets, daily range): BP systolic 130–169; BP diastolic 60–88
--- NOTE | 2019-08-07 00:58 | NUR ---
0058 RECEIVED A CALL FROM LAB REGARDING COVID RESULT. PATIENT NEGATIVE FOR COVID19.
[2019-08-07] MEDS: IV NS 0.9% 1,000 ML IV PRN (06:06)
[2019-08-07 06:23] LABS: BASOPHILS % (AUTO) 0.3 % (0.0-2.0); EOSINOPHILS % (AUTO) 1.4 % (0.0-6.0); HEMATOCRIT 24 % (39-51); HEMOGLOBIN 8.6 g/dL (13.5-17.5); LYMPHOCYTES # (AUTO) 1.2 /CMM (0.8-4.8); LYMPHOCYTES % (AUTO) 14.4 % (20.0-44.0); MEAN CORPUSCULAR HGB CONC 35 g/dl (31.0-36.0); MEAN CORPUSCULAR VOLUME 91 fL (80-96); MONOCYTES # (AUTO) 0.7 /CMM (0.1-1.30); MONOCYTES % (AUTO) 8.3 % (2.0-12.0); NEUTROPHILS # (AUTO) 6.1 /CMM (1.8-8.9); NEUTROPHILS % (AUTO) 75.6 % (43.0-81.0); PLATELET COUNT (AUTO) 266 /CMM (150-450); RED BLOOD CELL COUNT(AUTO) 2.68 MIL/uL (4.5-6.0); WHITE BLOOD COUNT (AUTO) 8.1 K/uL (4.3-11.0)
[2019-08-07 06:28] LABS: BILIRUBIN,TOTAL 0.5 mg/dL (0.2-1.0); CALCIUM, SERUM 7.8 mg/dL (8.5-10.1); CREATININE 0.8 mg/dL (0.6-1.3); MAGNESIUM 1.7 mg/dL (1.8-2.4); PHOSPHORUS 2.1 mg/dL (2.5-4.9); POTASSIUM 3.1 mmol/L (3.5-5.1)
[2019-08-07] MEDS: PANTOPRAZOLE 40 MG TABLET.DR PO SCH (07:54)
[2019-08-07] MEDS: BLOOD SUGAR DIAGNOSTIC 1 EACH STRIP IN SCH ×4 (07:56→23:32)
--- NOTE | 2019-08-07 07:57 | NUR ---
FLUE GAS ANALYST OPENING NOTES: RECEIVED PT IN BED RESTING COMFORTABLY. PATIENT IN NO S/SX OF ACUTE DISTRESS AT THIS TIME . NO SOB NOTED. PATIENT'S BREATHING. IS EVEN AND UNLABORED. PATIENT IS ALERT BUT CONFUSED. PATIENT IS ON 2L OF OXYGEN VIA NC, TOLERATING WELL. PATIENT ON CARDIAC MONITORING READING SINUS RHYTHM HR IS (64). IV SITE ON R HAND 22 G IS PATENT IN INTACT. SAFETY MEASURES HAVE BEEN IMPLEMENTED. PATIENT BED ALARM IS ON. HEAD OF BED ELEVATED. BED IS LOCKED, SIDE RAILS UP AND IN LOWEST POSITION. CALL LIGHT WITHIN REACH. WILL CONTINUE TO MONITOR AND REASSESS FOR ANY CHANGES.
--- NOTE | 2019-08-07 07:58 | NUR ---
MASTER SCHEDULER NOTES PATIENT NOTED TO HAVE LEFT MID ARM SWELLING DURING MORNING ASSESSMENT. APPLIED WARM COMPRESS & ELEVATED MID ARM WITH PILLOWS INTERVENTION.
[2019-08-07] MEDS ORDERED: POTASSIUM CHLORIDE 20 MEQ TAB.PRT.SR PO ONE (08:00)
[2019-08-07] MEDS ORDERED: MAGNESIUM OXIDE 400 MG TABLET PO ONE (08:00)
[2019-08-07] MEDS ORDERED: MAGNESIUM OXIDE 400 MG TABLET PO SCH (08:00)
--- NOTE | 2019-08-07 08:00 | NUR ---
RN NOTES BLOOD SUGAR : 86 ZERO COVERAGE
[2019-08-07] MEDS: DOXYCYCLINE HYCLATE (100 MG) 100 MG TABLET PO SCH (08:53)
[2019-08-07] MEDS: ASPIRIN 81 MG TAB.CHEW PO SCH (08:54)
[2019-08-07] MEDS: CEFEPIME 2 GM in IV D5W 100 ML IV SCH (08:55)
[2019-08-07] MEDS: ENOXAPARIN SODIUM 40 MG/0.4 ML DISP.SYRIN SQ SCH (09:08)
[2019-08-07] MEDS: Magnesium 1GM/D5W 100ML PREMIX 100 ML IV SCH ×2 (11:12→12:35)
[2019-08-07] MEDS ORDERED: K PHOS NEUTRAL 250 MG TABLET PO ONE (11:30)
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
--- NOTE | 2019-08-07 12:06 | NUR ---
TELE/RN NOTES GIVE REPORT TO OJNATHAN. PATIENT IS ALERT AND ORIENTED X2 EQUATORIAL GUINEAN SPEAKING. PATIENT V/S TAKEN AND RECORDED BP 141/85 T 97.8 HR 71 RR 18. PATIENT NOTED WITH LEFT ARM SWOLLEN, ON NASAL CANNULA AT 2L/MIN. IV ACCESS AT RIGHT UPPER ARM MIDLINE, RIGHT WRIST #22 G PATENT AND INTACT. IVF OF NS 1L AT 75 ML/HR ON INFUSING WELL. PATIENT IS SEEN AND EXAMINED BY MD WITH ORDERS MADE AND CARRIED OUT. PATIENT TRANSFER TO MEDICAL SURGICAL AT 1200 VIA MEDICAL BED.
[2019-08-07] MEDS: INSULIN REGULAR, HUMAN 100 UNIT/ML 3 ML VIAL SQ PRN (17:44)
--- NOTE | 2019-08-07 18:30 | NUR ---
RN NOTES XO2016 MG/DL COVERAGE GIVEN, PATIENT POOR EATER, FEEDER, ASSIST TURN AND REPOSTION Q 2 HR, V/S STABLE, INFUSING NS AT 75 ML/HR ON RIGHT MIDLINE INTACT. CALL LIGHT WITHIN TO REACH. ENDORSED ONCOMING NURSE FOLLOW PLAN OF CARE.
--- NOTE | 2019-08-07 19:40 | NUR ---
RN OPENING NOTES RECEIVED REPORT FROM [facility] ANTONIO ANGUIANO. FOUND Pt AWAKE, RESTING IN BED. NO S/S OF ACUTE DISTRESS OR SOB NOTED. Pt IS C/O PAIN ON LEFT KNEE. WILL SEE WHAT PAIN MED IS AVAILABLE. PER REPORT Pt IS A/OX2, BOTSWANAN SPEAKING ONLY. ON TELE MONITOR, WITH TELE READING SR 68. IV ACCESS ON HEMANTH MIDLINE; IVF NS RUNNING @75ML/HR. & 2ND IV ACCESS ON RWRIST #22G, SL. SAFETY MEASURES IN PLACE. BED LOW, LOCKED, HOB ELEVATED, SIDE RAILS UP, CALL LIGHT AND BEDSIDE TABLE WITHIN REACH. WILL CONTINUE TO MONITOR Pt's CONDITION AND SAFETY THROUGHOUT THE NIGHT.
[2019-08-07] MEDS: CEFAZOLIN 2 GM in IV NS 0.9% 100 ML IV SCH (21:30)
--- NOTE | 2019-08-07 22:00 | NUR ---
RN NOTES HS ACCUCHECK BG 111. NO INSULIN COVERAGE NEEDED AT THIS TIME.
[2019-08-08] VITALS (7 sets, daily range): BP systolic 141–156; BP diastolic 60–81
[2019-08-08] MEDS: IV NS 0.9% 1,000 ML IV PRN (02:14)
[2019-08-08] MEDS: CEFAZOLIN 2 GM in IV NS 0.9% 100 ML IV SCH ×3 (05:12→20:23)
--- NOTE | 2019-08-08 06:30 | NUR ---
RN NOTES AC ACCUCHECK BG 90. NO INSULIN COVERAGE NEEDED AT THIS TIME.
[2019-08-08] MEDS: BLOOD SUGAR DIAGNOSTIC 1 EACH STRIP IN SCH ×4 (06:33→22:40)
[2019-08-08 06:35] LABS: CALCIUM, SERUM 7.4 mg/dL (8.5-10.1); CREATININE 0.8 mg/dL (0.6-1.3); PHOSPHORUS 2.2 mg/dL (2.5-4.9); POTASSIUM 3.2 mmol/L (3.5-5.1)
--- NOTE | 2019-08-08 06:45 | NUR ---
RN CLOSING NOTES NO SIGNIFICANT CHANGES IN Pt's CONDITION. Pt IS RESTING COMFORTABLY IN BED. NO S/S OF ACUTE DISTRESS OR SOB NOTED DURING THE NIGHT. ALL NEEDS MET AND ATTENDED TO. SAFETY MEASURES IN PLACE. WILL ENDORSE TO DAYSHIFT RN FOR Pt's KITTY. TELE READING SR 64.
--- NOTE | 2019-08-08 07:43 | NUR ---
TELE/RN OPENING NOTES RECEIVED PATIENT SLEEPING ON BED BUT EASILY AROUSABLE. PATIENT IS ALERT AND ORIENTED X 4. PATIENT IN NO APPARENT RESPIRATORY DISTRESS NOTED. PATIENT DENIES PAIN AT THIS TIME. IV ACCESS ON LEFT FOREARM # 20G PATENT AND INTACT. IV FLUID OF NS 1L AT 50 ML/HR ON AND INFUSING WELL. BED IN LOWEST POSITION. WILL CONTINUE TO MONITOR.
[2019-08-08] MEDS: POTASSIUM CHLORIDE 20 MEQ TAB.PRT.SR PO SCH ×3 (08:37→10:11)
[2019-08-08] MEDS: DOXYCYCLINE HYCLATE (100 MG) 100 MG TABLET PO SCH (08:37)
[2019-08-08] MEDS: ASPIRIN 81 MG TAB.CHEW PO SCH (08:37)
[2019-08-08] MEDS: PANTOPRAZOLE 40 MG TABLET.DR PO SCH (08:37)
[2019-08-08] MEDS: ENOXAPARIN SODIUM 40 MG/0.4 ML DISP.SYRIN SQ SCH (08:42)
--- NOTE | 2019-08-08 12:04 | NUR ---
MS/RN NOTES BS 98MG/DL 0 COVERAGE
[2019-08-08] MEDS ORDERED: K PHOS NEUTRAL 250 MG TABLET PO ONE (13:00)
[2019-08-08] MEDS: GLUCERNA SHAKE 237 ML CAN PO SCH ×2 (14:30→17:00)
--- NOTE | 2019-08-08 18:10 | NUR ---
MS/RN NOTES BS 116MG/DL 0 COVERAGE
--- NOTE | 2019-08-08 18:33 | NUR ---
MS/RN CLOSING NOTES PATIENT IS ALERT AND ORIENTED X2. PATIENT IN NO APPARENT RESPIRATORY DISTRESS NOTED. PATIENT DENIES ANY PAIN AT THIS TIME. SEEN AND EXAMINED BY MD WITH ORDERS MADE AND CARRIED OUT. ALL DUE MEDS WAS GIVEN. KEPT PATIENT CLEAN AND DRY THE WHOLE SHIFT. CHECKED AND TURNED PATIENT EVERY 2 HOURS. BED IN LOWEST POSITION, SIDE RAILS UP X2. CALL LIGHT WITH IN REACH. WILL ENDORSED TO CRYSTAL EVALUATOR FOR KITTY.
--- NOTE | 2019-08-08 19:42 | NUR ---
RN OPEN NOTES PATIENT IS LAYING IN BED. ON 2L NASAL CANULA, NO SOB/ ACUTE RESPIRATORY DISTRESS NOTED. APPEARS TO BE COMFORTABLE/ NO COMPLAINTS OF PAIN AT THE MOMENT. BED IS IN LOWEST LOCKED POSITION WITH SIDE RAILS UP X2, SEMI FOWLERS. CALL LIGHT IS WITHIN REACH. WILL CONTINUE TO MONITOR.
[2019-08-09] MEDS: CEFAZOLIN 2 GM in IV NS 0.9% 100 ML IV SCH ×3 (04:32→20:41)
[2019-08-09] MEDS: BLOOD SUGAR DIAGNOSTIC 1 EACH STRIP IN SCH ×4 (06:43→21:03)
--- NOTE | 2019-08-09 06:48 | NUR ---
RN CLOSE NOTES PATIENT IS LAYING IN BED. ALL DUE MEDS GIVEN. BED IS IN LOWEST LOCKED POSITION WITH SIDE RAILS UP X3, SEMI FOWLERS. CALL LIGHT IS WITHIN REACH. MIDLINE IN RIGHT UPPER ARM IS PATENT AND INTACT. CALL LIGHT IS WITHIN REACH. A/O X3. APPEARS TO BE COMFORTABLE/ NO COMPLAINTS OF PAIN AT THE MOMENT. WILL ENDORSE TO AM NURSE.
[2019-08-09 07:10] LABS: CALCIUM, SERUM 7.7 mg/dL (8.5-10.1); CREATININE 0.9 mg/dL (0.6-1.3); PHOSPHORUS 2.5 mg/dL (2.5-4.9); POTASSIUM 3.8 mmol/L (3.5-5.1)
--- NOTE | 2019-08-09 07:46 | NUR ---
RN OPENING NOTE Patient is resting in bed, A/O x2, showing no signs of acute distress or SOB, saturating >95% on 2L NC. HEMANTH midline is clean and intact. Bed is in lowest position, side rails x3 in upright position, fall, safety and aspiration precautions enforced. Will continue with plan of care.
[2019-08-09 08:00] VITALS: BP 137/58
[2019-08-09] MEDS: ASPIRIN 81 MG TAB.CHEW PO SCH (08:39)
[2019-08-09] MEDS: GLUCERNA SHAKE 237 ML CAN PO SCH ×2 (08:40→17:32)
[2019-08-09] MEDS: PANTOPRAZOLE 40 MG TABLET.DR PO SCH (08:42)
[2019-08-09] MEDS: ENOXAPARIN SODIUM 40 MG/0.4 ML DISP.SYRIN SQ SCH (08:45)
[2019-08-09] MEDS ORDERED: CEFT1FRO2 IV (11:37)
--- NOTE | 2019-08-09 14:24 | NUR ---
RN NOTE Patient taken off nasal cannula to monitor how they can tolerate on RA. Patient presents with SOB and O2 sat 88% on RA. Patient put back on 3L NC. Patient remains stable, will continue to monitor. Patient will need O2 when DC home.
[2019-08-09 16:00] VITALS: BP 134/54
[2019-08-09] MEDS: INSULIN REGULAR, HUMAN 100 UNIT/ML 3 ML VIAL SQ PRN (17:32)
--- NOTE | 2019-08-09 19:04 | NUR ---
RN CLOSING NOTE Patient is resting in bed, A/O x1-2, showing no signs of acute distress or SOB, saturating >95% on 2L NC. Patient is medically stable for discharged. Discharge orders in, DC paperwork complete and co-signed with maximo RN due to patient not able to sign. Explained to patient with teacher elementary school at the bedside that he is going home. HEMANTH midline is clean and intact. Midline will stay in place for home health to continue IV abx. Expected pickling grader time is 10pm by ambulance due to oxygen waiting to be delivered at patient's home. All patient needs met, all due medications given, patient kept clean and comfortable throughout shift. Bed is in lowest position, side rails x3 in upright position, fall, safety and aspiration precautions enforced. WIll endorse to security shift supervisor.
--- NOTE | 2019-08-09 22:33 | NUR ---
MS/TELE/RN RECEIVED PATIENT AT 2000 AWAKE, ALERT, ORIENTED COMFORTABLE, NO DISTRESS NOTED. PATIENT WILL BE D/C'D HOME TONIGHT BY AMBULANCE. AMBULANCE ARRIVED AT 2200, REPORT GIVEN TO EMT, PATIENT LEFT THE FLOOR IN STABLE CONDITION. MIDLINE NOT REMOVED PATIENT WILL GET IV ANTIBIOTIC AT HOME.
== END 2019-08-09 22:15 | disposition home health service (06) | DRG 871 ==
LOC: ER 22:31 → TELE1 08-04 00:20 → TELE 08-07 12:07 → MED 08-08 08:49
PROVIDERS: ADMIT Nurse Practitioner Acute Care; ATTEND Nurse Practitioner Acute Care
PROC: 05H533Z Insertion of Infusion Device into Right Subclavian Vein, Percutaneous Approach (ICD-10-PCS; principal; 2019-08-06)
DX: A41.50 Gram-negative sepsis, unspecified (principal); I21.A1 Myocardial infarction type 2; J18.9 Pneumonia, unspecified organism; E44.0 Moderate protein-calorie malnutrition; E87.1 Hypo-osmolality and hyponatremia; E87.2 Acidosis; I50.32 Chronic diastolic (congestive) heart failure; Z68.1 Body mass index [BMI] 19.9 or less, adult; N39.0 Urinary tract infection, site not specified; I11.0 Hypertensive heart disease with heart failure; I25.2 Old myocardial infarction; K21.9 Gastro-esophageal reflux disease without esophagitis; Z86.73 Personal history of transient ischemic attack (TIA), and cerebral infarction without residual deficits; I25.10 Atherosclerotic heart disease of native coronary artery without angina pectoris; E83.42 Hypomagnesemia; E87.6 Hypokalemia; E86.0 Dehydration; E86.1 Hypovolemia; E11.9 Type 2 diabetes mellitus without complications; D64.9 Anemia, unspecified; F03.90 Unspecified dementia, unspecified severity, without behavioral disturbance, psychotic disturbance, mood disturbance, and anxiety; N40.0 Benign prostatic hyperplasia without lower urinary tract symptoms; Z79.82 Long term (current) use of aspirin; Z79.4 Long term (current) use of insulin; K14.6 Glossodynia; E88.09 Other disorders of plasma-protein metabolism, not elsewhere classified; M62.50 Muscle wasting and atrophy, not elsewhere classified, unspecified site; M19.90 Unspecified osteoarthritis, unspecified site; M24.562 Contracture, left knee; I48.0 Paroxysmal atrial fibrillation; Z79.02 Long term (current) use of antithrombotics/antiplatelets
CPT/HCPCS: 36415; 71045-TC; 80048-TC; 80053-TC; 80061-TC; 80076-TC; 80202-TC; 81000-TC; 82728-TC; 82962-TC; 83605-TC; 83615-TC; 83735-TC; 84100-TC; 84484-TC; 85025-TC; 85730-TC; 86140-TC; 87040-TC; 87081-TC; 87086-TC; 87186-TC; A4349; G0378; J0456; J0690; J0692; J1650; J1815; J2270; J2405; J3370; J3475; J7030; J7060

== ENCOUNTER 2020-05-18 01:53 | Inpatient (IN) | payer MEDICARE, OTHER ==
[~2020-05-18] VITALS: Ht 167.6 cm; Wt 56.7 kg
[~2020-05-18 01:53] MED LIST changes: +CEFT1FRO2 IV; -ENOX40DI SQ; -SULF1TAB48 PO
--- NOTE | 2020-05-18 02:01 | NUR ---
PATIENT CAME TO THE ER BED 5 C/O SOB FROM NURSING FACILITY. PER REPORT FROM RA, PATIENT WAS NOTED TO HAVE 86% O2 SATURATION. PATIENT HAS FEVER OF 101.2 UPON ARRIVAL. PATIENT IS AAOX3. BREATHING EVENLY AND UNLABORED ON ROOM AIR AT 98%. PATIENT IS CONNECTED TO THE ELECTRONIC COMMERCE SPECIALIST.
[2020-05-18] MEDS ORDERED: ACETAMINOPHEN 650 MG/SUPP.RECT RC ONE ×2 (02:19→02:30)
[2020-05-18] MEDS ORDERED: LIDOCAINE 2% JEL UROJET 10 ML MM ONE ×2 (02:37→03:00)
[2020-05-18 02:43] LABS: BASOPHILS # (AUTO) 0.1 /CMM (0.0-0.2); HEMATOCRIT 38 % (39-51); HEMOGLOBIN 12.4 g/dL (13.5-17.5); LYMPHOCYTES % (AUTO) 11.7 % (20.0-44.0); MEAN CORPUSCULAR HGB CONC 33 g/dl (31.0-36.0); MEAN CORPUSCULAR VOLUME 94 fL (80-96); MONOCYTES # (AUTO) 0.2 /CMM (0.1-1.30); MONOCYTES % (AUTO) 2.5 % (2.0-12.0); NEUTROPHILS # (AUTO) 7.2 /CMM (1.8-8.9); NEUTROPHILS % (AUTO) 83.8 % (43.0-81.0); PLATELET COUNT (AUTO) 383 /CMM (150-450); WHITE BLOOD COUNT (AUTO) 8.6 K/uL (4.3-11.0)
[2020-05-18] MEDS ORDERED: IV NS 0.9% 500 ML BAG IV ONE (03:00)
[2020-05-18 03:07] LABS: ALANINE AMINOTRANSFERASE 23 U/L (12-78); ALBUMIN 2.2 g/dL (3.4-5.0); ALKALINE PHOSPHATASE 123 U/L (46-116); ASPARTATE AMINOTRANSFERASE 21 U/L (15-37); B-TYPE NATRIURETIC PEPTIDE 14032 PG/ML (0-125); BILIRUBIN,TOTAL 0.5 mg/dL (0.2-1.0); CALCIUM, SERUM 8.7 mg/dL (8.5-10.1); CARBON DIOXIDE 24 mmol/L (21-32); CHLORIDE 104 mmol/L (98-107); GLUCOSE 127 mg/dL (74-106); POTASSIUM 4.3 mmol/L (3.5-5.1); SODIUM SERUM 141 mmol/L (136-145); TOTAL PROTEIN, SERUM 7.1 g/dL (6.4-8.2); UREA NITROGEN, BLOOD 18 mg/dL (7-18)
--- NOTE | 2020-05-18 03:15 | NUR ---
LACTIC 7.5 COVID NEGATIVE
[2020-05-18 03:32] LABS: D-DIMER 1.49 mg/L(FEU (0.17-0.50)
[2020-05-18 03:38] LABS: BILIRUBIN,URINE SMALL (NEGATIVE); COLOR,URINE YELLOW (YELLOW); LEUKOCYTE ESTERASE ,URINE TRACE (NEGATIVE); NITRITE, URINE POSITIVE (NEGATIVE); PROTEIN,URINE >=300 mg/dl (NEGATIVE); UGLUCOSE NEGATIVE (NEGATIVE); UROBILINOGEN,URINE 0.2 EU/dL (0.2)
[2020-05-18 03:43] LABS: BACTERIA,URINE Many /HPF (None Seen); RBC,URINE 81-100 /HPF (0-2); SQUAMOUS EPITHELIAL CELL,UR Few /HPF (None Seen)
--- NOTE | 2020-05-18 04:10 | NUR ---
PATIENT TAKEN TO CT.
[2020-05-18] MEDS ORDERED: CEFTRIAXONE 1 G in IV D5W 50 ML IV ONE (05:00)
[2020-05-18] MEDS ORDERED: CEFTRIAXONE 1GM BAG (ER ONLY) 50 ML IV ONE (05:04)
[2020-05-18] MEDS ORDERED: FUROSEMIDE 40 MG/4 ML VIAL IV ONE (05:30)
[2020-05-18] MEDS ORDERED: FUROSEMIDE 40 MG/4 ML VIAL ONE (05:32)
--- NOTE | 2020-05-18 06:01 | NUR ---
PATIENT IS SLEEPING. EASILY AROUSABLE. BREATHING EVENLY AND UNLABORED ON ROOM AIR. CONNECTED TO THE RECREATION PROGRAM SPECIALIST. PATIENT'S BED IS AT THE LWOEST POSITION. CALL LIGHT IS WITHIN REACH. WILL CONTINUE TO MONITOR PATIENT CLOSELY.
[2020-05-18 06:12] LABS: BILIRUBIN,DIRECT 0.2 mg/dL (0.0-0.2)
--- NOTE | 2020-05-18 08:08 | NUR ---
PATIENT SLEEPING, NO DISTRESS NOTED. VSS
[2020-05-18] MEDS ORDERED: DIGO125T PO (08:44)
[2020-05-18] MEDS ORDERED: METO-357 PO (08:44)
[2020-05-18] MEDS ORDERED: LOSA25TA27 PO (08:44)
[2020-05-18] MEDS ORDERED: NITR0.4T48 SL (08:44)
[2020-05-18] MEDS ORDERED: ASPI-1169 PO (08:44)
[2020-05-18] MEDS ORDERED: ATOR20TA PO (08:44)
[2020-05-18] MEDS ORDERED: APIX2.5T PO (08:44)
--- NOTE | 2020-05-18 09:19 | NUR ---
GOT BED 311-1
--- NOTE | 2020-05-18 09:51 | NUR ---
REPORT GIVEN TO VARGAS ALVAREZ FOR KITTY.
[2020-05-18 10:10] VITALS: BP 151/73
--- NOTE | 2020-05-18 10:10 | NUR ---
FORGE TENDER NOTE PATIENT WAS ADMITTED FROM ER. PATIENT IS IN NO ACUTE DISTRESS. ALERT ORIENTED X 2-3. PATIENT IS ON OXYGEN 2L, TOLERATING WELL WITH O2 SATURATION OF 99%. PATIENT IS ON TELE MONITOR READING A-FIB 62 CONTROLLED. VITALS SIGNS ARE WITHIN NORMAL LIMIT. PATIENT HAS BRUISING ON THE LEFT ARM AND SACRAL WOUND. PICTURES TAKEN AND PLACED IN THE CHART. SAFETY PRECAUTIONS ARE ON, BED IN THE LOWEST POSITION, WITH SIDE RAILS UP. CALL LIGHT WITHIN REACH. WILL CONTINUE TO MONITOR PATIENT CLOSELY.
--- NOTE | 2020-05-18 10:39 | NUR ---
PATIENT TRANSFERRED TO ROOM 311-1 VIA ACLS PROTOCOL. NO DISTRESS NOTED.
[2020-05-18 12:00] VITALS: BP 179/68
[2020-05-18] MEDS ORDERED: ONDANSETRON HCL/PF 4 MG/2 ML VIAL IVP PRN (12:30)
[2020-05-18] MEDS ORDERED: MAG HYDROX/AL HYDROX/SIMETH 30 ML UDC PO PRN (12:30)
[2020-05-18] MEDS ORDERED: ZOLPIDEM TARTRATE 5 MG TABLET PO PRN (12:30)
[2020-05-18] MEDS ORDERED: Z GUARD REMEDY 2 OZ OINT TP PRN (12:30)
[2020-05-18] MEDS ORDERED: HYDROCODONE/APAP 5/325MG TABLET PO PRN (12:30)
[2020-05-18] MEDS ORDERED: ACETAMINOPHEN 325 MG TABLET PO PRN (12:30)
[2020-05-18] MEDS ORDERED: MORPHINE SULFATE INJ 2 MG/ML DISP.SYRIN IV PRN (12:30)
[2020-05-18] MEDS ORDERED: MAGNESIUM HYDROXIDE 30 ML UDC PO PRN (12:30)
[2020-05-18] MEDS ORDERED: ENOXAPARIN SODIUM 40 MG/0.4 ML DISP.SYRIN SQ SCH (13:00)
[2020-05-18] MEDS ORDERED: DEXTROSE 50%-WATER 50 ML DISP.SYRIN IV PRN (13:00)
[2020-05-18] MEDS ORDERED: NITROGLYCERIN 0.4 MG/TAB BOTTLE SL PRN (13:00)
[2020-05-18] MEDS: LOSARTAN POTASSIUM 25 MG TABLET PO SCH (13:08)
[2020-05-18] MEDS: METOPROLOL SUCCINATE 50 MG TAB.SR.24H PO SCH (13:08)
[2020-05-18 16:00] VITALS: BP 135/94
[2020-05-18] MEDS: APIXABAN 2.5 MG TABLET PO SCH (16:44)
[2020-05-18] MEDS ORDERED: BLOOD SUGAR DIAGNOSTIC 1 EACH STRIP IN SCH (17:30)
[2020-05-18] MEDS: BLOOD SUGAR DIAGNOSTIC 1 EACH STRIP IN SCH ×2 (17:35→21:32)
[2020-05-18] MEDS: ENSURE ENLIVE 237 ML LIQUID (VANILLA) PO SCH (17:35)
[2020-05-18] MEDS: INSULIN REGULAR, HUMAN 100 UNIT/ML 3 ML VIAL SQ PRN (17:37)
--- NOTE | 2020-05-18 18:48 | NUR ---
MS RN CLOSING NOTE PATIENT IS IN BED RESTING. PATIENT IS IN NO ACUTE DISTRESS. PATIENT IS ON OXYGEN 2L ON NC. TOLERATING WELL. NO SOB NOTED. SAFETY PRECAUTIONS ARE IN PLACE. BED IN THE LOWEST POSITION, SIDE RAILS ARE UP. CALL LIGHT WITHIN REACH. ENDORSE PATIENT TO CONCRETE SMOOTHER NURSE FOR KITTY.
--- NOTE | 2020-05-18 19:30 | NUR ---
GEAR CODING MACHINE OPERATOR NOTES RECEIVED CALM AND QUIET ON BED WATCHING TV PROGRAM,BREATHING REGULAR,O2 IN USED TO KEEP O2 SAT ABOVE 90%.SALINE LOCK RFA INTACT AND PATENT.FALL PRECAUTION OBSERVED,BED ON LOWEST POSITION AND LOCKED.CALL LIGHT IN REACH,NEEDS ANTICIPATED.
[2020-05-18 20:00] VITALS: BP 148/70
--- NOTE | 2020-05-18 20:45 | NUR ---
LAWN CARE SPECIALIST NOTES REPORTED BY OCCUPATIONAL HEALTH TECHNICIAN LUCIA,BLOOD CULTURE RESULT GRAM NEGATIVE RODS,CHARGE NURSE MADE AWARE
[2020-05-18] MEDS: ATORVASTATIN 10 MG TABLET PO SCH (21:32)
--- NOTE | 2020-05-18 21:45 | NUR ---
PIG MACHINE CRANE OPERATOR NOTES ACCU-CHECK BLOOD SUGAR CHECK 103,NO INSULIN COVERAGE.
[2020-05-19] VITALS: BP_SYST 153; BP_SYST 155; BP_DIAS 66; BP_DIAS 78; BP_DIAS 79
[2020-05-19 04:00] VITALS: BP 145/69
[2020-05-19] MEDS: CEFTRIAXONE 1 G in IV D5W 50 ML IV SCH (05:18)
[2020-05-19] MEDS: BLOOD SUGAR DIAGNOSTIC 1 EACH STRIP IN SCH ×4 (05:27→21:18)
[2020-05-19] MEDS: INSULIN REGULAR, HUMAN 100 UNIT/ML 3 ML VIAL SQ PRN ×3 (05:30→22:12)
--- NOTE | 2020-05-19 05:30 | NUR ---
OUTPATIENT PHYSICAL THERAPIST ASSISTANT NOTES ACCU-CHECK BLOOD SUGAR CHECK 140,COVERED WITH HUMULIN R 2 UNITS PER SLIDING SCALE.
--- NOTE | 2020-05-19 05:45 | NUR ---
BOTTLING MACHINE OPERATOR NOTES REPORTED BY GARDENING SUPERVISORGREGORIO VARMA WITH EPISODE OF PAUSES,ASYMPTOMATIC,NO CHEST PAIN,PAUSES NORMAL 3-4 SECONDS ON PATIENT WITH HX OF AFIB.
[2020-05-19 06:03] LABS: BASOPHILS % (AUTO) 0.6 % (0.0-2.0); EOSINOPHILS % (AUTO) 1.1 % (0.0-6.0); HEMATOCRIT 34 % (39-51); HEMOGLOBIN 11.5 g/dL (13.5-17.5); LYMPHOCYTES # (AUTO) 1.1 /CMM (0.8-4.8); LYMPHOCYTES % (AUTO) 23.6 % (20.0-44.0); MEAN CORPUSCULAR HGB CONC 34 g/dl (31.0-36.0); MEAN CORPUSCULAR VOLUME 94 fL (80-96); MONOCYTES # (AUTO) 0.6 /CMM (0.1-1.30); MONOCYTES % (AUTO) 13.1 % (2.0-12.0); NEUTROPHILS % (AUTO) 61.6 % (43.0-81.0); PLATELET COUNT (AUTO) 258 /CMM (150-450); RED BLOOD CELL COUNT(AUTO) 3.57 MIL/uL (4.5-6.0); WHITE BLOOD COUNT (AUTO) 4.8 K/uL (4.3-11.0)
[2020-05-19 06:31] LABS: CALCIUM, SERUM 8.7 mg/dL (8.5-10.1); CREATININE 0.9 mg/dL (0.6-1.3); PHOSPHORUS 3.3 mg/dL (2.5-4.9); POTASSIUM 3.6 mmol/L (3.5-5.1)
[2020-05-19 06:50] LABS: THYROID STIMULATING HORMONE 0.957 uIU/mL (0.358-3.74)
--- NOTE | 2020-05-19 07:15 | NUR ---
CLERICAL WAREHOUSE WORKER NOTES CLERICAL WAREHOUSE WORKER NOTES CALM AND QUIET THRU OUT SHIFT,NO EPISODE OF SOB,IV ABX TOLERATED WELL.IN NO ACUTE DISTRESS.
--- NOTE | 2020-05-19 07:50 | NUR ---
SORTING AND FOLDING SUPERVISOR OPENING NOTE PATIENT IS IN BED RESTING. PATIENT IS IN NO ACUTE DISTRESS. PATIENT IS ON OXYGEN 2L ON NC. TOLERATING WELL. NO SOB NOTED. SAFETY PRECAUTIONS ARE IN PLACE. BED IN THE LOWEST POSITION, SIDE RAILS ARE UP. CALL LIGHT WITHIN REACH. WILL CONTINUE TO MONITOR CLOSELY.
[2020-05-19 08:00] VITALS: BP 146/77
[2020-05-19] MEDS: ASPIRIN 81 MG TAB.CHEW PO SCH (09:33)
[2020-05-19] MEDS: LOSARTAN POTASSIUM 25 MG TABLET PO SCH (09:33)
[2020-05-19] MEDS: PANTOPRAZOLE 40 MG TABLET.DR PO SCH (09:33)
[2020-05-19] MEDS: CLOPIDOGREL BISULFATE 75 MG TABLET PO SCH (09:33)
[2020-05-19] MEDS: APIXABAN 2.5 MG TABLET PO SCH ×2 (09:35→16:20)
[2020-05-19] MEDS: ENSURE ENLIVE 237 ML LIQUID (VANILLA) PO SCH ×2 (09:40→16:18)
[2020-05-19] MEDS: METOPROLOL SUCCINATE 50 MG TAB.SR.24H PO SCH (09:40)
[2020-05-19 12:00] VITALS: BP 134/78
[2020-05-19] MEDS: DIGOXIN 0.125 MG TABLET PO SCH (13:00)
--- NOTE | 2020-05-19 13:52 | NUR ---
SENIOR DRAFTER NOTE PATIENT IS SCHEDULED FOR DIGOXIN, MEDICATION IS WITHHELD PATIENT HAD A-FIB WITH HEART RATE FLUCTUATING FROM 38-50s. DR. CORONADO IS MADE AWARE.
[2020-05-19 16:00] VITALS: BP 145/78
[2020-05-19] MEDS: LINZESS 72 MCG PO SCH (16:18)
[2020-05-19] MEDS: FUROSEMIDE 40 MG/4 ML VIAL IV SCH (16:19)
--- NOTE | 2020-05-19 19:19 | NUR ---
MS RN CLOSING NOTE PATIENT IS IN BED RESTING. PATIENT IS IN NO ACUTE DISTRESS. PATIENT IS ON OXYGEN 2L ON NC. TOLERATING WELL. PATIENT IS ON TELE MONITOR READING A-FIB 35-50S. DR. CORONADO IS AWARE. SAFETY PRECAUTIONS ARE IN PLACE. BED IN THE LOWEST POSITION, SIDE RAILS ARE UP. CALL LIGHT WITHIN REACH. ENDORSE PATIENT TO WHITE LEAD GRINDER NURSE FOR KITTY.
--- NOTE | 2020-05-19 19:40 | NUR ---
TECHNICAL APPLICATIONS SCIENTIST NOTE: PATIENT RESTING IN BED, NO ACUTE DISTRESS NOTED. BREATHING EVEN AND UNLABORED, NO SOB NOTED. TELE READING AFIB 60. IV TO LFA IN PLACE. BED LOCKED AND IN LOWEST POSITION, CALL LIGHT IN REACH. WILL CONTINUE TO MONITOR THROUGHOUT SHIFT.
[2020-05-19 20:00] VITALS: BP 151/58
[2020-05-19] MEDS: ATORVASTATIN 10 MG TABLET PO SCH (21:18)
--- NOTE | 2020-05-19 22:15 | NUR ---
TAPE DECK INSTALLER NOTE" PATIENT BLOOD SUGAR LEVEL 182MG/DL , TO RECEIVE 3 UNITS OF INSULIN PER SLIDING SCALE. NO S/S OF HYPER/HYPOGLYCEMIA NOTED. SNACKS AT BEDSIDE. WILL CONTINUE TO MONITOR THROUGHOUT SHIFT.
[2020-05-20] VITALS: BP 155/71
[2020-05-20 04:00] VITALS: BP 145/59
[2020-05-20] MEDS: CEFTRIAXONE 1 G in IV D5W 50 ML IV SCH (05:15)
[2020-05-20] MEDS: BLOOD SUGAR DIAGNOSTIC 1 EACH STRIP IN SCH ×4 (06:35→21:14)
--- NOTE | 2020-05-20 06:35 | NUR ---
HEAD REFRIGERATING ENGINEER NOTE: PATIENT RESTING IN BED, NO ACUTE DISTRESS NOTED. BREATHING EVEN AND UNLABORED, NO SOB NOTED. TELE READING AFIB 30-60'S. IV TO LFA IN PLACE. PATIENT BLOOD SUGAR LEVEL 94MG/DL, NO INSULIN NEEDED PER SLIDING SCALE. NO S/S OF HYPER/HYPOGLYCEMIA NOTED. BED LOCKED AND IN LOWEST POSITION, CALL LIGHT IN REACH. WILL ENDORSE TO DAY NURSE TO CONTINUE WITH PLAN OF CARE.
[2020-05-20 06:46] LABS: BASOPHILS % (AUTO) 0.6 % (0.0-2.0); EOSINOPHILS % (AUTO) 1.5 % (0.0-6.0); HEMATOCRIT 34 % (39-51); HEMOGLOBIN 11.5 g/dL (13.5-17.5); LYMPHOCYTES # (AUTO) 1.2 /CMM (0.8-4.8); LYMPHOCYTES % (AUTO) 23.7 % (20.0-44.0); MEAN CORPUSCULAR HGB CONC 34 g/dl (31.0-36.0); MEAN CORPUSCULAR VOLUME 92 fL (80-96); MONOCYTES # (AUTO) 0.7 /CMM (0.1-1.30); MONOCYTES % (AUTO) 13.1 % (2.0-12.0); NEUTROPHILS # (AUTO) 3.2 /CMM (1.8-8.9); NEUTROPHILS % (AUTO) 61.1 % (43.0-81.0); PLATELET COUNT (AUTO) 285 /CMM (150-450); RED BLOOD CELL COUNT(AUTO) 3.65 MIL/uL (4.5-6.0); WHITE BLOOD COUNT (AUTO) 5.2 K/uL (4.3-11.0)
[2020-05-20 07:19] LABS: BILIRUBIN,TOTAL 0.3 mg/dL (0.2-1.0); CALCIUM, SERUM 8.6 mg/dL (8.5-10.1); CREATININE 0.8 mg/dL (0.6-1.3); MAGNESIUM 1.9 mg/dL (1.8-2.4); PHOSPHORUS 3.3 mg/dL (2.5-4.9); POTASSIUM 3.5 mmol/L (3.5-5.1); TOTAL PROTEIN, SERUM 6.4 g/dL (6.4-8.2)
--- NOTE | 2020-05-20 07:27 | NUR ---
OVERNIGHT ASSOCIATE OPENING NOTE PT RECEIVED IN BED, SLEEPING BUT AROUSABLE, RESPONSIVE AND ABLE TO MAKE NEEDS KNOWN WITH NO C/O PAIN AT THIS TIME. PT IS A/O X2, PRIMARILY KHMER SPEAKING. PT IS ON NASAL CANNULA AT 2 LPM WITH NO SOB, LABORED BREATHING OR S/SX RESPIRATORY DISTRESS NOTED. TELE MONITOR SHOWS A-FIB CONTROLLED WITH HR BETWEEN 35-60 BPM. NO CARDIAC DISTRESS NOTED AT THIS TIME. PT HAS AN IV ACCESS ON THE RIGHT FA G#18 THAT IS PATENT, INTACT AND FLUSHING WELL WITH NO REDNESS, SWELLING, IRRITATION OR INFILTRATION NOTED. SAFETY MEASURES IN PLACE: BED IS IN LOWEST POSITION AND LOCKED, UPPER SIDE RAILS X 2 UP, AND CALL LIGHT PLACED WITHIN REACH. WILL CONTINUE TO MONITOR.
[2020-05-20 08:00] VITALS: BP 144/64
[2020-05-20] MEDS: FUROSEMIDE 40 MG/4 ML VIAL IV SCH ×2 (08:22→16:52)
[2020-05-20] MEDS: PANTOPRAZOLE 40 MG TABLET.DR PO SCH (08:22)
[2020-05-20] MEDS: ASPIRIN 81 MG TAB.CHEW PO SCH (08:22)
[2020-05-20] MEDS: LOSARTAN POTASSIUM 25 MG TABLET PO SCH (08:23)
[2020-05-20] MEDS: APIXABAN 2.5 MG TABLET PO SCH ×2 (08:23→16:52)
[2020-05-20] MEDS: LINZESS 72 MCG PO SCH (08:24)
[2020-05-20] MEDS: CLOPIDOGREL BISULFATE 75 MG TABLET PO SCH (08:24)
[2020-05-20] MEDS: ENSURE ENLIVE 237 ML LIQUID (VANILLA) PO SCH ×2 (09:06→16:55)
--- NOTE | 2020-05-20 10:26 | NUR ---
WOUND CARE CONSULT: REVIEWED CHART, NURSING DOCUMENTATION AND PHOTO WHICH INDICATES SACRAL WOUND, PRESENT ON ADMISSION. RECOMMEND SURGICAL CONSULT. DR TINSLEY NOTIFIED OF CONSULT REQUEST. RECOMMENDATIONS MADE FOR SKIN PROTECTION. DISCUSSED WITH NURSING STAFF. MD IN AGREEMENT WITH PLAN OF CARE.
[2020-05-20] MEDS: INSULIN REGULAR, HUMAN 100 UNIT/ML 3 ML VIAL SQ PRN ×2 (11:49→17:38)
[2020-05-20 12:00] VITALS: BP 152/70
[2020-05-20] MEDS: DIGOXIN 0.125 MG TABLET PO SCH (12:15)
[2020-05-20 16:00] VITALS: BP 152/84
--- NOTE | 2020-05-20 18:47 | NUR ---
SOFTWARE TECHNICAL LEAD CLOSING NOTE PT IS IN BED WATCHING TV, RESPONSIVE AND A/O X 2. PT PRIMARILY SPEAKS MALAY BUT ABLE TO MAKE NEEDS KNOWN. PT IS CURRENTLY ON 2 LPM VIA NASAL CANNULA, TOLERATING WELL WITH NO NS/SX OF RESPIRATORY DISTRESS, SOB OR LABORED BREATHING. TELE MONITOR SHOWS NSR AT 40-60'S BPM DURING THE DAY WITH NO CARDIAC DISTRESS NOTED. PT'S IV ACCESS G#18 ON RIGHT FOREARM IS PATENT, INTACT, FLUSHING WELL WITH NO S/SX INFILTRATION OR INFECTION. SAFETY MEASURES MAINTAINED: BED IN LOWEST, LOCKED POSITION WITH BOTH SIDE RAILS X 2 UP, CALL LIGHT PLACED WITHIN REACH. WILL ENDORSE TO WHALE FISHERMAN NURSE.
--- NOTE | 2020-05-20 19:20 | NUR ---
RN NOTE RECEIVED PT AWAKE IN BED IN SEMI CONROY'S POSITION. PT IS ORIENTED X 1 (TO NAME). ON 2L OF O2 VIA NC. RESPIRATIONS EVEN AND UNLABORED. DENIES PAIN OR DISCOMFORT. AFIB RHYTHM NOTED ON THE GREASE PRESS HELPER. SAFETY MEASURES IN PLACE PER PROTOCOL, BED ALARM ON, BED LOCKED AND IN LOW POSITION, SIDE RAILS UP X 2, WILL MONITOR PATIENT AND CARRY OUT ACTIVE MD ORDERS.
[2020-05-20 20:00] VITALS: BP 142/64
[2020-05-20] MEDS: ATORVASTATIN 10 MG TABLET PO SCH (21:15)
[2020-05-21] VITALS (7 sets, daily range): BP systolic 141–163; BP diastolic 75–82
[2020-05-21] MEDS: CEFTRIAXONE 1 G in IV D5W 50 ML IV SCH (05:19)
[2020-05-21 06:30] LABS: BASOPHILS % (AUTO) 0.3 % (0.0-2.0); EOSINOPHILS % (AUTO) 1.5 % (0.0-6.0); HEMATOCRIT 35 % (39-51); HEMOGLOBIN 11.8 g/dL (13.5-17.5); LYMPHOCYTES # (AUTO) 1.2 /CMM (0.8-4.8); LYMPHOCYTES % (AUTO) 21.9 % (20.0-44.0); MEAN CORPUSCULAR HGB CONC 34 g/dl (31.0-36.0); MEAN CORPUSCULAR VOLUME 93 fL (80-96); MONOCYTES # (AUTO) 0.6 /CMM (0.1-1.30); MONOCYTES % (AUTO) 10.5 % (2.0-12.0); NEUTROPHILS # (AUTO) 3.7 /CMM (1.8-8.9); NEUTROPHILS % (AUTO) 65.8 % (43.0-81.0); PLATELET COUNT (AUTO) 282 /CMM (150-450); RED BLOOD CELL COUNT(AUTO) 3.73 MIL/uL (4.5-6.0); WHITE BLOOD COUNT (AUTO) 5.6 K/uL (4.3-11.0)
--- NOTE | 2020-05-21 07:00 | NUR ---
RN CLOSING NOTE PATIENT RESTING COMFORTABLY IN BED, DENIES ANY PAIN OR DISCOMFORT. VITAL SIGNS STABLE. BLOOD SUGAR CHECKED, WNL. SAFETY MEASURES IN PLACE, CALL LIGHT WITHIN REACH.
[2020-05-21 07:20] LABS: PHENYTOIN (DILANTIN) < 0.5 ug/ml (10.0-20.0)
[2020-05-21 07:22] LABS: ALANINE AMINOTRANSFERASE 30 U/L (12-78); ALKALINE PHOSPHATASE 98 U/L (46-116); ASPARTATE AMINOTRANSFERASE 24 U/L (15-37); B-TYPE NATRIURETIC PEPTIDE 11141 PG/ML (0-125); BILIRUBIN,TOTAL 0.2 mg/dL (0.2-1.0); CALCIUM, SERUM 8.6 mg/dL (8.5-10.1); CARBON DIOXIDE 35 mmol/L (21-32); CHLORIDE 103 mmol/L (98-107); CREATININE 0.8 mg/dL (0.6-1.3); GLUCOSE 129 mg/dL (74-106); MAGNESIUM 1.8 mg/dL (1.8-2.4); POTASSIUM 3.5 mmol/L (3.5-5.1); SODIUM SERUM 142 mmol/L (136-145); TOTAL PROTEIN, SERUM 6.5 g/dL (6.4-8.2); UREA NITROGEN, BLOOD 36 mg/dL (7-18)
--- NOTE | 2020-05-21 07:30 | NUR ---
INSULATION ESTIMATOR NOTES PT IN BED, AWAKE, ALERT AND VERBALLY RESPONSIVE, NO COMPLAINT OF PAIN, RESPIRATIONS NORMAL, CALL LIGHT WITHIN REACH, ISOLATION PRECAUTIONS OBSERVED, STILL AWAITING COVID TEST RESULT, KEPT WARM AND COMFORTABLE IN BED.
[2020-05-21] MEDS: BLOOD SUGAR DIAGNOSTIC 1 EACH STRIP IN SCH ×4 (07:40→21:14)
[2020-05-21] MEDS: ENSURE ENLIVE 237 ML LIQUID (VANILLA) PO SCH ×2 (09:00→16:13)
[2020-05-21] MEDS: LINZESS 72 MCG PO SCH (09:40)
[2020-05-21] MEDS: LOSARTAN POTASSIUM 25 MG TABLET PO SCH (09:40)
[2020-05-21] MEDS: CLOPIDOGREL BISULFATE 75 MG TABLET PO SCH (09:41)
[2020-05-21] MEDS: PANTOPRAZOLE 40 MG TABLET.DR PO SCH (09:41)
[2020-05-21] MEDS: ASPIRIN 81 MG TAB.CHEW PO SCH (09:41)
[2020-05-21] MEDS: APIXABAN 2.5 MG TABLET PO SCH ×2 (09:42→16:12)
[2020-05-21] MEDS: FUROSEMIDE 40 MG/4 ML VIAL IV SCH ×2 (09:42→16:12)
[2020-05-21] MEDS: DIGOXIN 0.125 MG TABLET PO SCH (12:58)
--- NOTE | 2020-05-21 12:58 | NUR ---
NURSE ANESTHESIA PROGRAM DIRECTOR NOTES DIGOXIN NOT GIVEN, HT 64
[2020-05-21] MEDS: INSULIN REGULAR, HUMAN 100 UNIT/ML 3 ML VIAL SQ PRN ×3 (13:01→21:33)
[2020-05-21] MEDS ORDERED: CLONIDINE HCL 0.1 MG TABLET PO PRN (13:30)
--- NOTE | 2020-05-21 19:00 | NUR ---
MECHANICAL FIELD ENGINEER NOTES PT IN BED, AWAKE, ALERT AND VERBALLY RESPONSIVE, NO COMPLAINT OF PAIN, NOT IN DISTRESS, CALL LIGHT WITHIN REACH, WITH GOOD PO INTAKE, ASSISTED WITH MEALS, PM MEDS GIVEN, PM CARE PROVIDED, ALL NEEDS ATTENDED.
--- NOTE | 2020-05-21 19:30 | NUR ---
INTERNIST MEDICAL DOCTOR MD OPENING NOTE RECEIVED PATIENT ON ISOLATION FOR R/O COVID. PATIENT IN BED. A/OX2. ON OXYGEN 2.5L/MIN VIA NASAL CANNULA. RESPIRATIONS ARE EVEN AND UNLABORED. NO S/S SOB NOTE. NO /O PAIN AT THIS TIME. EXTERNAL TELE MONITOR READS CONTROLLED AFIB HR 65. IN NO APPARENT DISTRESS. IV ACCESS IN RFA#18 PATENT AND SALINE NERISSA. BED IS LOW AND LOCKED, HOB ELEVATED IN SEMI FOWLERS, SIDE RIALS U X2, CALL LIGHT WITHIN REACH. WILL CONTINUE TO MONITOR.
[2020-05-21] MEDS: ATORVASTATIN 10 MG TABLET PO SCH (21:14)
[2020-05-22] VITALS (8 sets, daily range): BP systolic 106–153; BP diastolic 55–100
[2020-05-22] MEDS: CEFTRIAXONE 1 G in IV D5W 50 ML IV SCH (05:42)
[2020-05-22] MEDS: BLOOD SUGAR DIAGNOSTIC 1 EACH STRIP IN SCH ×4 (06:07→21:02)
[2020-05-22] MEDS: INSULIN REGULAR, HUMAN 100 UNIT/ML 3 ML VIAL SQ PRN ×4 (06:12→21:09)
--- NOTE | 2020-05-22 07:02 | NUR ---
SKEIN STRAIGHTENER CLOSING NOTE ISOLATION R/O COVID. RESTING IN BED. A/OX2. TOLERATING ROOM AIR WITH NO RESP DISTRESS. NO C/O PAIN THROUGHOUT SHIFT. TELE MONITOR READS CONTROLLED AFIB. NO DISTRESS. IV ACCESS MAINTAINED IN RFA#18. BED REMAINS LOW AND LOCKED, HOB ELEVATED IN SEMI FOWLERS, SIDE RIALS U X2, CALL LIGHT WITHIN REACH. WILL ENDORSE TO NEXT SHIFT.
--- NOTE | 2020-05-22 07:30 | NUR ---
TRUCK CAR AND BUS CLEANER NOTES PT IN BED, AWAKE, ALERT AND VERBALLY RESPONSIVE, NO SIGN OF PAIN OR DISTRESS, BEING ASSISTED WITH BREAKFAST, TOLERATES WELL, CALL LIGHT WITHIN REACH.
[2020-05-22] MEDS: ASPIRIN 81 MG TAB.CHEW PO SCH (08:34)
[2020-05-22] MEDS: LOSARTAN POTASSIUM 25 MG TABLET PO SCH (08:34)
[2020-05-22] MEDS: PANTOPRAZOLE 40 MG TABLET.DR PO SCH (08:34)
[2020-05-22] MEDS: FUROSEMIDE 40 MG/4 ML VIAL IV SCH ×2 (08:34→16:51)
[2020-05-22] MEDS: ENSURE ENLIVE 237 ML LIQUID (VANILLA) PO SCH ×2 (08:34→16:28)
[2020-05-22] MEDS: CLOPIDOGREL BISULFATE 75 MG TABLET PO SCH (08:34)
[2020-05-22] MEDS: LINZESS 72 MCG PO SCH (08:36)
[2020-05-22] MEDS: APIXABAN 2.5 MG TABLET PO SCH ×2 (08:37→16:52)
[2020-05-22] MEDS: DIGOXIN 0.125 MG TABLET PO SCH (12:52)
--- NOTE | 2020-05-22 18:20 | NUR ---
RN MS NOTES PT in bed resting, easy to arouse, alert and verbally responsive in belizean. Denies pain, respirations normal. no c/o distress , tolerates medications well. Bedside debridement performed by . Assisted with dinner
--- NOTE | 2020-05-22 19:30 | NUR ---
PROCESS VALIDATION ENGINEER OPENING NOTE RECEIVED PATIENT IN BED. A/OX2. TOLERATING ROOM AIR. RESPIRATIONS ARE EVEN AND UNLABORED. NO S/S SOB NOTED. NO C/O PAIN AT THIS TIME. EXTERNAL TELE MONITOR READS CONTROLLED AFIB HR 69. IN NO APPARENT DISTRESS. IV ACCESS IN RFA#18 PATENT AND SALINE LOCKED. BED IS LOW AND LOCKED, HOB ELEVATED IN SEMI FOWLERS, SIDE RIALS UP X2, CALL LIGHT WITHIN REACH. WILL CONTINUE TO MONITOR THROUGHOUT SHIFT
[2020-05-22] MEDS: ATORVASTATIN 10 MG TABLET PO SCH (21:02)
[2020-05-23] VITALS: BP 113/56
[2020-05-23 04:00] VITALS: BP 139/57
[2020-05-23] MEDS: CEFTRIAXONE 1 G in IV D5W 50 ML IV SCH (05:11)
[2020-05-23] MEDS: BLOOD SUGAR DIAGNOSTIC 1 EACH STRIP IN SCH ×4 (06:38→21:58)
--- NOTE | 2020-05-23 06:45 | NUR ---
GOLD AND SILVER ASSAYER CLOSING NOTE PATIENT RESTING IN BED. A/OX2. REMAINS TOLERATING ROOM AIR. NO RESP DISTRESS. MANAGED PAIN WITH NORCO 5. TELE MONITOR READS CONTROLLED AFIB. NO DISTRESS. IV ACCESS MAINTAINED IN RFA#18. BED REMAINS LOW AND LOCKED, HOB ELEVATED IN SEMI FOWLERS, SIDE RIALS UP X2, CALL LIGHT WITHIN REACH. WILL ENDORSE TO ONCOMING SHIFT.
--- NOTE | 2020-05-23 07:39 | NUR ---
RN MS OPENING NOTES Patient recieved in bed resting, easy to arouse, alert and verbally responsive in pashto. Denies pain, respirations normal. no c/o distress , tolerates medications well. AOx1-2. Needs minimal assistance with feeding. Call light within reached and promptly answered.
[2020-05-23 08:00] VITALS: BP 131/63
[2020-05-23] MEDS: FUROSEMIDE 40 MG/4 ML VIAL IV SCH ×2 (08:26→16:28)
[2020-05-23] MEDS: ASPIRIN 81 MG TAB.CHEW PO SCH (08:26)
[2020-05-23] MEDS: CLOPIDOGREL BISULFATE 75 MG TABLET PO SCH (08:26)
[2020-05-23] MEDS: LOSARTAN POTASSIUM 25 MG TABLET PO SCH (08:26)
[2020-05-23] MEDS: APIXABAN 2.5 MG TABLET PO SCH ×2 (08:27→16:28)
[2020-05-23] MEDS: PANTOPRAZOLE 40 MG TABLET.DR PO SCH (08:27)
[2020-05-23] MEDS: LINZESS 72 MCG PO SCH (08:35)
[2020-05-23] MEDS: ENSURE ENLIVE 237 ML LIQUID (VANILLA) PO SCH ×2 (08:36→16:13)
[2020-05-23] MEDS: INSULIN REGULAR, HUMAN 100 UNIT/ML 3 ML VIAL SQ PRN ×3 (11:56→22:13)
[2020-05-23 12:00] VITALS: BP 112/50
[2020-05-23] MEDS: DIGOXIN 0.125 MG TABLET PO SCH (12:13)
[2020-05-23 16:00] VITALS: BP 165/57
--- NOTE | 2020-05-23 19:01 | NUR ---
RN MS CLOSING NOTES PT in bed resting, easy to arouse, alert and verbally responsive in macanese. Denies pain, respirations normal. no c/o distress , tolerates medications well. Assisted with dinner
--- NOTE | 2020-05-23 19:45 | NUR ---
INTERCEPTOR OPERATOR NOTES RECEIVED ON BED A/O X2,SPEAK DANISH,BREATHING NON LABORED,AFIB-62 ON TELE MONITOR,WITH RFA SALINE LOCK INTACT AND PATENT.FALL RISK,BED ALARM TRIGGERED,CALL LIGHT IN REACH,NEEDS ANTICIPATED.
[2020-05-23 20:00] VITALS: BP 137/74
[2020-05-23] MEDS: ATORVASTATIN 10 MG TABLET PO SCH (21:30)
--- NOTE | 2020-05-23 22:00 | NUR ---
AIRFRAME TECHNICAL OFFICER NOTES ACCU-CHECK BLOOD SUGAR CHECK 193,COVERED WITH HUMULIN R 3 UNITS PER SLIDING SCALE.
[2020-05-24] VITALS (7 sets, daily range): BP systolic 120–154; BP diastolic 56–98
[2020-05-24] MEDS: CEFTRIAXONE 1 G in IV D5W 50 ML IV SCH (05:29)
[2020-05-24] MEDS: BLOOD SUGAR DIAGNOSTIC 1 EACH STRIP IN SCH ×4 (05:30→22:12)
--- NOTE | 2020-05-24 06:23 | NUR ---
ABRASIVE MIXER HELPER NOTES ACCU-CHECK BLOOD SUGAR CHECK 99,NO INSULIN COVERAGE
--- NOTE | 2020-05-24 06:24 | NUR ---
MEDICAL SONOGRAPHER NOTES NO SIGNIFICANT CHANGE IN STATUS,MORNING CARE RENDERED BY ALEX WEBB,IV ABX ADMINISTERED SCHEDULED.,FOR D/C PLANNING.
--- NOTE | 2020-05-24 07:33 | NUR ---
RN MS OPENING NOTES Patient recieved in bed resting, easy to arouse, alert and verbally responsive in tamaz[place]. Denies pain, respirations normal. Breathing unlabored and even, currently on room air. Patient does not appear in any kind of distress. AOx1-2. Call light within reached and safety precautions implemented.
[2020-05-24] MEDS: PANTOPRAZOLE 40 MG TABLET.DR PO SCH (08:53)
[2020-05-24] MEDS: LOSARTAN POTASSIUM 25 MG TABLET PO SCH (08:54)
[2020-05-24] MEDS: FUROSEMIDE 40 MG/4 ML VIAL IV SCH ×2 (08:54→17:13)
[2020-05-24] MEDS: ASPIRIN 81 MG TAB.CHEW PO SCH (08:54)
[2020-05-24] MEDS: CLOPIDOGREL BISULFATE 75 MG TABLET PO SCH (08:54)
[2020-05-24] MEDS: ENSURE ENLIVE 237 ML LIQUID (VANILLA) PO SCH ×2 (08:55→17:13)
[2020-05-24] MEDS: APIXABAN 2.5 MG TABLET PO SCH ×2 (08:57→17:13)
[2020-05-24] MEDS: LINZESS 72 MCG PO SCH (08:59)
[2020-05-24] MEDS: INSULIN REGULAR, HUMAN 100 UNIT/ML 3 ML VIAL SQ PRN ×2 (12:42→23:08)
[2020-05-24] MEDS: DIGOXIN 0.125 MG TABLET PO SCH (13:00)
--- NOTE | 2020-05-24 14:27 | NUR ---
RN NOTES TRACEY MORENO, APPROACHED RN AND INFORMED ABOUT PATIENT HAVING A SKIN TEAR ON THE RIGHT HAND. PATIENT IS ENGLISH-SPEAKING, BUT UNABLE TO VERBALIZED TO STAFF HOW SKIN CONDITION OCCURRED. NO ACTIVE BLEEDING NOTED ON SITE. PHOTO TAKEN OF SKIN ISSUE AND PLACED ON CHART. SKIN AREA SECURED W/ STERI-STRIPS. WILL REQUEST FOR WOUND CONSULT.
--- NOTE | 2020-05-24 19:10 | NUR ---
RN MS CLOSING NOTES Patient in bed resting, able to be awakened. Alert and oriented x1-2, Marshallese-speaking, able to make needs known. Breathing unlabored and even, tolerating on room air, no sob nor respiratory distress. IV line on RFA #18 intact and patent. Safety precautions maintained. Due meds given; kept clean and dry. Endorsed to cnc machinist 2nd shift rn for [place]a.
--- NOTE | 2020-05-24 19:35 | NUR ---
MSRN AWAKE, CZECH SPEAKING, VERY LIMITED TAIWANESE. WILBERTO ANY DISCOMFORTS AT THIS TIME PER POWERTRAIN ENGINEER. RESTING QUIETLY.NO SOB. KEPT DRY, CLEAN AND COMFORTABLE. ASSISTED REPOSITIONING. CLOSELY WATCHED.
[2020-05-24] MEDS: ATORVASTATIN 10 MG TABLET PO SCH (22:12)
--- NOTE | 2020-05-24 22:56 | NUR ---
MSRN BS 161, COVERED WITH 3 UNITS REGULAR INSULIN SQ PER SLIDING SCALE. SNACKS PROVIDED, ATE 100% ASSISTED IN FEEDING. HS CARE DONE. REPOSITIONED FOR COMFORT. KEPT DRY CLEAN AND COMFORTABLE
--- NOTE | 2020-05-25 02:15 | NUR ---
MSRN LARGE URINE OUTPUT INCONTINENT. PARTIAL SPONGE BATH, KEPT DRY COMFORTABLE. NEEDS FREQ REPOSITIONING, LEFT ARM CONTRACTED SUPPORTED WITH PILLOWS . CATIA HEELS OFFLOAD MATRESS PILLOWS IN BETWEEN KNEES AND LOWER EXTREMITIES. SACRAL DRESSING DRY/INTACT. ON RA, STABLE.
[2020-05-25] MEDS: CEFTRIAXONE 1 G in IV D5W 50 ML IV SCH (05:30)
--- NOTE | 2020-05-25 06:44 | NUR ---
MSRN ACCUCHECK WAS 101. REPOSITIONED.
[2020-05-25] MEDS: BLOOD SUGAR DIAGNOSTIC 1 EACH STRIP IN SCH ×4 (06:51→21:58)
[2020-05-25] MEDS: PANTOPRAZOLE 40 MG TABLET.DR PO SCH (07:56)
[2020-05-25 08:00] VITALS: BP 162/74
--- NOTE | 2020-05-25 08:00 | NUR ---
RN Opening note Received patient in bed AO x 2 yoruba speaking, does no appears pain or distress, skin is warm to touch keep clean/dry, intact IV site on right FA 18g/SL. Respiratory even and unlabored on room air. Kept elevated HOB for ensure airway and aspiration precaution also lower bed position with bed alarm on for safety. Call light within reach, will continue to monitor.
[2020-05-25] MEDS: LOSARTAN POTASSIUM 25 MG TABLET PO SCH (08:43)
[2020-05-25] MEDS: ASPIRIN 81 MG TAB.CHEW PO SCH (08:43)
[2020-05-25] MEDS: FUROSEMIDE 40 MG/4 ML VIAL IV SCH ×2 (08:43→18:16)
[2020-05-25] MEDS: CLOPIDOGREL BISULFATE 75 MG TABLET PO SCH (08:45)
[2020-05-25] MEDS: APIXABAN 2.5 MG TABLET PO SCH ×2 (08:46→18:10)
[2020-05-25] MEDS: ENSURE ENLIVE 237 ML LIQUID (VANILLA) PO SCH ×2 (08:48→17:00)
[2020-05-25] MEDS: LINZESS 72 MCG PO SCH (13:06)
[2020-05-25] MEDS: INSULIN REGULAR, HUMAN 100 UNIT/ML 3 ML VIAL SQ PRN ×2 (13:09→18:10)
[2020-05-25] MEDS: DIGOXIN 0.125 MG TABLET PO SCH (13:10)
[2020-05-25 16:00] VITALS: BP 121/64
--- NOTE | 2020-05-25 18:49 | NUR ---
RN Closing note Patient in bed resting, does no appears pain or discomfort. Skin is warm to touch kept clean/dry, dressing changed on left buttock, intact IV site on right FA 18g with SL. Respiratory even and unlabored on room air, no SOB or desaturate observed. Keep elevated HOB for ensure airway and aspiration precaution and lowest bed position for safety. stable vital sign. Call light within reach, will endorse security shift manager.
--- NOTE | 2020-05-25 19:30 | NUR ---
MS/RN OPENING NOTES RECEIVED PATIENT IN BED RESTING. PATIENT IS ALERT AND ORIENTED X 2-3. PATIENTS BREATHING IS EVEN AND UNLABORED. NO SIGN OF SOB OR RESPIRATORY DISTRESS NOTED. PATIENT STATES NO PAIN AT THIS TIME. PATIENT HAS IV ACCESS ON RIGHT FOREARM. SAFETY MEASURES ARE IN PLACE, BED IS LOCKED AND PLACED IN THE LOWEST POSITION, SIDE RAILS UP X 2, CALL LIGHT IS WITHIN REACH. WILL CONTINUE TO MONITOR THROUGH OUT SHIFT.
[2020-05-25 20:00] VITALS: BP 140/66
[2020-05-25] MEDS: ATORVASTATIN 10 MG TABLET PO SCH (21:43)
[2020-05-26] MEDS: AMOXICILLIN TRIHYDRATE 250 MG CAPSULE PO SCH ×3 (05:08→21:13)
[2020-05-26] MEDS: BLOOD SUGAR DIAGNOSTIC 1 EACH STRIP IN SCH ×4 (06:33→21:03)
--- NOTE | 2020-05-26 06:50 | NUR ---
MS/RN CLOSING NOTES PATIENT IN BED RESTING. PATIENT IS ALERT AND ORIENTED X 2-3. PATIENTS BREATHING IS EVEN AND UNLABORED. NO SIGN OF SOB OR RESPIRATORY DISTRESS NOTED. PATIENT STATES NO PAIN AT THIS TIME. PATIENT HAS IV ACCESS ON RIGHT FOREARM FLUSHING WELL. ALL NEED SHAVE BEEN MET DURING SHIFT. SAFETY MEASURES ARE IN PLACE, BED IS LOCKED AND PLACED IN THE LOWEST POSITION, SIDE RAILS UP X 2, CALL LIGHT IS WITHIN REACH. WILL ENDORSE CARE TO DAY SHIFT NURSE.
[2020-05-26] MEDS: PANTOPRAZOLE 40 MG TABLET.DR PO SCH (07:49)
[2020-05-26 08:00] VITALS: BP 147/72
--- NOTE | 2020-05-26 08:00 | NUR ---
RN Opening note Received patient in bed AO x 2 Belarusian speaking, c/o legs pain 8 out of 10 and given Morphine, skin is warm to touch keep clean/dry, intact IV site on right FA 18g/SL. Respiratory even and unlabored on room air, no sob or distress observed. Kept elevated HOB for ensure airway and aspiration precaution also lower bed position with bed alarm on for safety. Call light within reach, will continue to monitor.
[2020-05-26] MEDS: ASPIRIN 81 MG TAB.CHEW PO SCH (08:22)
[2020-05-26] MEDS: CLOPIDOGREL BISULFATE 75 MG TABLET PO SCH (08:22)
[2020-05-26] MEDS: FUROSEMIDE 40 MG/4 ML VIAL IV SCH ×2 (08:22→17:26)
[2020-05-26] MEDS: LOSARTAN POTASSIUM 25 MG TABLET PO SCH (08:22)
[2020-05-26] MEDS: ENSURE ENLIVE 237 ML LIQUID (VANILLA) PO SCH ×2 (08:22→17:28)
[2020-05-26] MEDS: APIXABAN 2.5 MG TABLET PO SCH ×2 (08:24→17:27)
[2020-05-26] MEDS: LINZESS 72 MCG PO SCH (08:25)
[2020-05-26] MEDS: DIGOXIN 0.125 MG TABLET PO SCH (12:32)
[2020-05-26] MEDS: INSULIN REGULAR, HUMAN 100 UNIT/ML 3 ML VIAL SQ PRN ×2 (12:34→21:06)
[2020-05-26 15:59] VITALS: BP 104/52
--- NOTE | 2020-05-26 18:36 | NUR ---
RN Closing note Patient having meal, does no appears pain or discomfort. Skin is warm to touch kept clean/dry, dressing changed on left buttock, intact IV site on right FA 18g with SL. Respiratory even and unlabored on room air O2sat 99% on room air, no SOB or desaturate observed. Keep elevated HOB for ensure airway and aspiration precaution and lowest bed position for safety. stable vital sign. Call light within reach, will endorse shift supervisor melting.
--- NOTE | 2020-05-26 19:15 | NUR ---
RN opening notes Received Pt from morning nurse. Pt is laying in bed comfortably watching TV. Pt is alert and orientedX2. Pt speaks Maori and able to make needs known. Respiration is normal in room air. No SOB. No S/S of distress noted. IV site at RFA# 18 is clean, intact, flushes well and SL. Safety precautions is maintained. Bed at low position, brakes locked, hob elevated, side rails upX2, bed alarm is on and call light is within reach. Will continue to monitor.
[2020-05-26 20:00] VITALS: BP 145/62
[2020-05-26 20:01] VITALS: BP 145/62
[2020-05-26] MEDS: ATORVASTATIN 10 MG TABLET PO SCH (21:13)
[2020-05-26 22:12] VITALS: BP 146/93
[2020-05-27] MEDS: AMOXICILLIN TRIHYDRATE 250 MG CAPSULE PO SCH ×2 (04:00→12:45)
[2020-05-27] MEDS: BLOOD SUGAR DIAGNOSTIC 1 EACH STRIP IN SCH ×3 (06:37→16:50)
[2020-05-27] MEDS: INSULIN REGULAR, HUMAN 100 UNIT/ML 3 ML VIAL SQ PRN ×2 (06:38→11:11)
--- NOTE | 2020-05-27 06:50 | NUR ---
RN closing notes Pt is resting in bed comfortably. Pt is alert and orientedX2. Pt speaks Armenian and able to make needs known. Respiration is normal in room air. No SOB. No S/S of distress noted. IV site at RFA# 18 is clean, intact, flushes well and SL. VS is stable. Afebrile. Routine meds were given as ordered. Kept Pt clean, dry and comfortable. Safety precautions is maintained. Bed at low position, brakes locked, hob elevated, side rails upX2, bed alarm is on and call light is within reach. Will endorse to morning nurse for KITTY.
--- NOTE | 2020-05-27 07:40 | NUR ---
MS RN OPENING NOTES RECEIVED PATIENT IN BED. A/O X2. ON ROOM AIR, TOLERATING WELL. NO SOB NOTED. NO S/S OF RESPIRATORY DISTRESS. IV ACCESS ON R FA #18 SL, INTACT. SAFETY MEASURES MAINTAINED. BED IN LOWEST POSITION, BRAKES LOCKED. SIDE RAILS UP X2. CALL LIGHT WITHIN REACH. WILL CONTINUE PLAN OF CARE.
[2020-05-27 08:00] VITALS: BP 143/80
[2020-05-27] MEDS: PANTOPRAZOLE 40 MG TABLET.DR PO SCH (08:29)
[2020-05-27] MEDS: ASPIRIN 81 MG TAB.CHEW PO SCH (08:29)
[2020-05-27] MEDS: FUROSEMIDE 40 MG/4 ML VIAL IV SCH ×2 (08:29→16:40)
[2020-05-27] MEDS: LOSARTAN POTASSIUM 25 MG TABLET PO SCH (08:29)
[2020-05-27] MEDS: CLOPIDOGREL BISULFATE 75 MG TABLET PO SCH (08:42)
[2020-05-27] MEDS: APIXABAN 2.5 MG TABLET PO SCH ×2 (08:42→16:43)
[2020-05-27] MEDS: ENSURE ENLIVE 237 ML LIQUID (VANILLA) PO SCH ×2 (08:43→16:40)
[2020-05-27] MEDS: LINZESS 72 MCG PO SCH (08:43)
--- NOTE | 2020-05-27 09:57 | NUR ---
WOUND CARE CONSULT: PT PRESENTS WITH RT HAND SKIN TEARS. RECOMMENDATIONS MADE FOR SKIN PROTECTION AND WOUND CARE. DISCUSSED WITH NURSING STAFF AND HOWARD DOWNEY CURRENTLY ON CASE. IN AGREEMENT WITH PLAN OF CARE. Addendum: 05/27/20 at 0958 by DEN ZIMMERMAN WNDNU Amended: Links added.
[2020-05-27] MEDS: DIGOXIN 0.125 MG TABLET PO SCH (12:42)
--- NOTE | 2020-05-27 12:45 | NUR ---
MS RN NOTES HELD DIGOXIN. WI 58.
[2020-05-27] MEDS ORDERED: LACT-246 PO (14:59)
[2020-05-27] MEDS ORDERED: PANT40TA2 PO (14:59)
[2020-05-27] MEDS ORDERED: ACET325T53 PO (14:59)
[2020-05-27] MEDS ORDERED: Blood Sugar Diagnostic IN (14:59)
[2020-05-27] MEDS ORDERED: AMOX250C PO (14:59)
[2020-05-27 16:00] VITALS: BP 123/80
--- NOTE | 2020-05-27 17:10 | NUR ---
MS RN NOTES BS OF 65. NO INSULIN GIVEN. PATIENT WAS GIVEN OJ AND SNACKS. WILL CONTINUE TO MONITOR THROUGHOUT THE SHIFT.
--- NOTE | 2020-05-27 19:06 | NUR ---
MS RN CLOSING NOTES PATIENT IN BED. A/O X2. ON ROOM AIR, TOLERATING WELL. NO SOB NOTED. IN NO APPARENT DISTRESS. DENIES ANY PAIN AT THIS TIME. IV ACCESS ON R FA #18 SL, INTACT AND PATENT. ALL NEEDS HAVE BEEN MET. ROUTINE MEDS WERE GIVEN ORDERED. SAFETY MEASURES MAINTAINED. BED IN LOWEST POSITION, BRAKES LOCKED. SIDE RAILS UP X2. CALL LIGHT WITHIN REACH. WILL ENDORSE TO DIRECTOR OF ACCOUNTS RECEIVABLE FOR PLAN OF CARE.
--- NOTE | 2020-05-27 20:13 | NUR ---
MS RN NOTES PATIENT IS DISCHARGED. HEALTH TEACHING AND DISCHARGE INSTRUCTIONS WERE GIVEN TO PT AND FAMILY WELL. VERBALIZED UNDERSTANDING. PICKED UP BY 2 EMT'S VIA [facility]. ID BADGE AND IV ACCESS REMOVED. BP 139/85 TX 83 RR 16 T 97.9 SAO2 98%
== END 2020-05-27 20:13 | disposition home health service (06) | DRG 853 ==
LOC: ER 01:54 → TELE 09:30 → MED 05-24 13:57
PROVIDERS: ADMIT Nurse Practitioner Acute Care; ATTEND Nurse Practitioner Acute Care
PROC: 0JB70ZZ Excision of Back Subcutaneous Tissue and Fascia, Open Approach (ICD-10-PCS; principal; 2020-05-22)
DX: A41.51 Sepsis due to Escherichia coli [E. coli] (principal); L89.153 Pressure ulcer of sacral region, stage 3; G93.41 Metabolic encephalopathy; J18.9 Pneumonia, unspecified organism; J96.01 Acute respiratory failure with hypoxia; I50.33 Acute on chronic diastolic (congestive) heart failure; E44.0 Moderate protein-calorie malnutrition; N39.0 Urinary tract infection, site not specified; D68.69 Other thrombophilia; I48.20 Chronic atrial fibrillation, unspecified; R64 Cachexia; E87.2 Acidosis; Z20.822 Contact with and (suspected) exposure to COVID-19; E11.9 Type 2 diabetes mellitus without complications; E78.5 Hyperlipidemia, unspecified; I25.10 Atherosclerotic heart disease of native coronary artery without angina pectoris; K21.9 Gastro-esophageal reflux disease without esophagitis; Z79.82 Long term (current) use of aspirin; Z95.5 Presence of coronary angioplasty implant and graft; Z79.4 Long term (current) use of insulin; N40.1 Benign prostatic hyperplasia with lower urinary tract symptoms; M24.562 Contracture, left knee; M62.50 Muscle wasting and atrophy, not elsewhere classified, unspecified site; Z68.20 Body mass index [BMI] 20.0-20.9, adult; K58.9 Irritable bowel syndrome, unspecified; D69.2 Other nonthrombocytopenic purpura; I11.0 Hypertensive heart disease with heart failure; F03.90 Unspecified dementia, unspecified severity, without behavioral disturbance, psychotic disturbance, mood disturbance, and anxiety
CPT/HCPCS: 36415; 71045-TC; 80048-TC; 80053-TC; 80061-TC; 80162-TC; 80185-TC; 81001; 82248-TC; 82962-TC; 83605-TC; 83735-TC; 83880; 84100-TC; 84443-TC; 84484-TC; 85025-TC; 85378-TC; 85730-TC; 87040-TC; 87081-TC; 87086-TC; 87186-TC; 93307-TC; A6253; C9803; G0378; J0696; J1815; J1940; J2270; J3490; J7040; J7050; J7060; U0003